=== PATIENT | female | born 1950 | race Caucasian/White ===

== ENCOUNTER 2016-06-04 22:27 | Emergency (ER) | payer MEDICARE, MEDICAID ==
[2016-06-05] MEDS ORDERED: LIDOCAINE 1%/EPINEPHRINE INJ 20 ML VIAL INJ ONE (03:59)
--- NOTE | 2016-06-05 05:46 | ER Document Report ---
ED General - General Chief Complaint: Fall Injury Stated Complaint: FALL,HEAD LACERATION Notes: Patient is a 58-year-old female presents for complaint of a fall. Patient says she has MS and sometimes her leg will give out on her. She says her leg spasms and gave out on her and she fell hit her head. She denies any other injuries. She says her pain is mostly in her head. She denies any neck pain. No back pain. Denies any hip pain. No abdominal or chest pain. No other complaints at this time. She's not on blood thinners. No loss of consciousness. No vomiting since the fall. TRAVEL OUTSIDE OF THE [place] IN LAST 30 DAYS: No - Related Data Allergies/Adverse Reactions: Penicillins Allergy (Verified 10/10/15 09:01) Past Medical History - Social History Smoking Status: Never Smoker Chew tobacco use (# tins/day): No Frequency of alcohol use: None Drug Abuse: None Family History: Reviewed & Not Pertinent Patient has suicidal ideation: No Patient has homicidal ideation: No - Past Medical History Cardiac Medical History: Reports: Hx Hypertension Denies: Hx Coronary Artery Disease, Hx Heart Attack Pulmonary Medical History: Reports: Hx Pneumonia Denies: Hx Asthma, Hx Bronchitis, Hx COPD Neurological Medical History: Denies: Hx Cerebrovascular Accident, Hx Seizures Renal/ Medical History: Denies: Hx Peritoneal Dialysis GI Medical History: Reports: Hx Gastroesophageal Reflux Disease Musculoskeltal Medical History: Reports Hx Arthritis, Reports Hx Multiple Sclerosis Psychiatric Medical History: Reports: Hx Depression Past Surgical History: Reports: Hx Hysterectomy, Hx Thyroid Surgery, Hx Tonsillectomy - Immunizations Immunizations up to date: No Hx Diphtheria, Pertussis, Tetanus Vaccination: Yes Hx Pneumococcal Vaccination: 08/30/14 Review of Systems - Review of Systems Notes: My Normal Review Basic REVIEW OF SYSTEMS: CONSTITUTIONAL : Denies fever, chills, or sweats. Denies recent illness. EENT: Scalp laceration RESPIRATORY: Denies cough, cold, or chest congestion. Denies shortness of breath, difficulty breathing, or wheezing. GASTROINTESTINAL: Denies abdominal pain. Denies nausea, vomiting, or diarrhea. Denies constipation. Last BM: GENITOURINARY: Denies difficulty urinating, painful urination, burning, frequency, or blood in urine. MUSCULOSKELETAL: Denies neck or back pain or joint pain or swelling. SKIN: Denies rash or skin lesions NEUROLOGICAL: Denies altered mental status or loss of consciousness. Denies headache. Denies weakness or paralysis or loss of use of either side. Denies problems with gait or speech. Denies sensory or motor loss. ALL OTHER SYSTEMS REVIEWED AND NEGATIVE. Physical Exam - Vital signs Vitals: Temp Pulse Resp BP Pulse Ox 97.9 F 75 16 92/52 L 95 06/04/16 22:51 06/04/16 22:51 06/04/16 22:51 06/04/16 22:51 06/04/16 22:51 - Notes Notes: General Appearance: Well nourished, alert, cooperative, no acute distress, no obvious discomfort. Well-appearing. Vitals: reviewed, See vital signs table. Head: Small laceration over posterior's scalp is approximately 1-1/2 cm. No foreign body seen. Eyes: PERRL, EOMI, Conjuctiva clear Mouth: No decreasd moisture Throat: No tonsillar inflammation, No airway obstruction, No lymphadenopathy Neck: Supple, no neck tenderness, No thyromegaly. No step-offs or deformities to palpation of the neck. Back: No tenderness to palpation of thoracic or lumbar spine. No step-offs or deformities. Lungs: No wheezing, No rales, No rhonci, No accessory muscle use, good air exchange bilaterally. Heart: Normal rate, Regular rythm, No murmur, no rub Abdomen: Normal BS, soft, No rigidity, No abdominal tenderness, No guarding, no rebound, no abdominal masses, no organomegaly Extremities: strength 5/5 in all extremities, good pulses in all extremities, no swelling or tenderness in the extremities, no pain with range of motion of all 4 extremities. No edema. Pelvis is stable without pain to palpation. Skin: warm, dry, appropriate color, no rash Neuro: speech clear, oriented x 3, normal affect, responds appropriately to questions. Course - Vital Signs Vital signs: Temp Pulse Resp BP Pulse Ox 97.7 F 75 18 105/52 L 96 06/05/16 05:52 06/05/16 05:52 06/05/16 05:52 06/05/16 05:52 06/05/16 05:52 - Transfer of Care Notes: 06/05/16 05:53 Patient will be discharged home. Sounds at her follow is prolonged mechanical. She says the fall is related to her MS. I did apply aditya in the scalp laceration. I cannot find any other concerning injuries on physical exam. CT scan the head was negative. Patient encouraged return to ER if she has severe headache, vomiting, or feels unwell or has any further concerns. Patient agrees with plan and will be discharged home. Patient's initial blood pressure was a little low. Patient says her blood pressure usually runs low. She says her systolic pressure is usually just above 100. Dictation of this chart was performed using voice recognition software; therefore, there may be some unintended grammatical errors. 06/05/16 05:54 06/05/16 07:00 Discharge - Discharge Clinical Impression: Scalp laceration Qualifiers: Encounter type: initial encounter Qualified Code(s): S01.01XA - Laceration without foreign body of scalp, initial encounter Condition: Good Disposition: HOME, SELF-CARE Additional Instructions: Please have your aditya removed in 7 days. Please return to ER immediately if you have severe headache, vomiting, or feel unwell. Please be careful when you walk and ask for assistance if needed when you walk due to the weakness you have from your MS. Return to the ER if you have any further concerns. Referrals: SARBJIT CAGLE MD [Primary Care Provider] - Follow up in 1 week
[2016-06-05 12:02] VITALS: BP 120/59
== END 2016-06-05 12:07 | disposition home or self-care (01) ==
LOC: ER 22:27
PROC: 0HQ0XZZ Repair Scalp Skin, External Approach (ICD-10-PCS; principal; 2016-06-04)
DX: S01.01XA Laceration without foreign body of scalp, initial encounter (principal); G35 Multiple sclerosis; X58.XXXA Exposure to other specified factors, initial encounter
CPT/HCPCS: 99284; 70450; 12001; J3490

== ENCOUNTER 2016-10-21 01:32 | Emergency (ER) | payer MEDICARE ==
[2016-10-21] MEDS ORDERED: MORPHINE SULFATE 10 MG/ML INJ IV ONE (01:46)
[2016-10-21] MEDS ORDERED: NORMAL SALINE 1000 ML 1,000 ML IV ONE ×2 (01:46→06:53)
--- NOTE | 2016-10-21 01:48 | ER Document Report ---
ED General - General Stated Complaint: CHEST TIGHTNESS Time Seen by Provider: 10/21/16 01:41 Notes: Patient is a 66-year-old female that comes emergency department for chief complaint of body pain and chest tightness. Patient states that she might be having a flare from multiple sclerosis, however she had more chest tightness than usual and she became concerned and called EMS. EMS gave her 2 sublingual nitroglycerin, aspirin, Zofran. Patient states she felt nauseated and she " spit up a little" twice. Patient denies fever or chills, she reports the pain makes her feel short of breath. She denies history of [place], states she had a negative stress test last year, denies family history of cardiac disease, denies personal or family history of blood clot. Patient also states she is out of Klonopin, for 3 days now, states that she was taken off by her primary care provider about a month ago, patient also had a new fentanyl patch which symptoms started shortly after, this was also removed by EMS. TRAVEL OUTSIDE OF THE [place] IN LAST 30 DAYS: No - Related Data Allergies/Adverse Reactions: Penicillins Allergy (Verified 10/10/15 09:01) Past Medical History - General Information source: Patient - Social History Smoking Status: Former Smoker Drug Abuse: None Lives with: Friend Family History: Reviewed & Not Pertinent - Past Medical History Cardiac Medical History: Reports: Hx Hypertension Denies: Hx Coronary Artery Disease, Hx Heart Attack Pulmonary Medical History: Reports: Hx Pneumonia Denies: Hx Asthma, Hx Bronchitis, Hx COPD Neurological Medical History: Denies: Hx Cerebrovascular Accident, Hx Seizures Renal/ Medical History: Denies: Hx Peritoneal Dialysis GI Medical History: Reports: Hx Gastroesophageal Reflux Disease Musculoskeltal Medical History: Reports Hx Arthritis, Reports Hx Multiple Sclerosis Psychiatric Medical History: Reports: Hx Depression Past Surgical History: Reports: Hx Hysterectomy, Hx Thyroid Surgery, Hx Tonsillectomy - Immunizations Immunizations up to date: No Hx Diphtheria, Pertussis, Tetanus Vaccination: Yes Hx Pneumococcal Vaccination: 08/30/14 Review of Systems - Review of Systems Constitutional: No symptoms reported EENT: No symptoms reported Cardiovascular: See HPI Respiratory: See HPI Gastrointestinal: No symptoms reported Genitourinary: No symptoms reported Female Genitourinary: No symptoms reported Musculoskeletal: See HPI Skin: No symptoms reported Hematologic/Lymphatic: No symptoms reported Neurological/Psychological: No symptoms reported Physical Exam - Vital signs Vitals: Resp Pulse Ox 21 H 97 10/21/16 01:38 10/21/16 01:38 Interpretation: Normal - General General appearance: Other - patient somewhat anxious, appears worked up, but not in distress - HEENT Head: Normocephalic, Atraumatic Eyes: Normal Pupils: PERRL - Respiratory Respiratory status: No respiratory distress. No: Tachypnea Chest status: Nontender Breath sounds: Normal. No: Decreased air movement, Stridor Chest palpation: Normal - Cardiovascular Rhythm: Regular, Tachycardia Heart sounds: Normal auscultation, S1 appreciated, S2 appreciated Murmur: No - Abdominal Inspection: Normal Distension: No distension Bowel sounds: Normal Tenderness: Nontender. No: Tender, Coy's sign, Guarding Organomegaly: No organomegaly - Back Back: Normal, Nontender. No: Tender - Extremities General upper extremity: Normal inspection, Nontender, Normal ROM, Normal strength General lower extremity: Normal inspection, Nontender, Normal ROM, Normal strength. No: Edema - Neurological Neuro grossly intact: Yes Cognition: Normal Orientation: AAOx4 Kavitha Coma Scale Eye Opening: Spontaneous Kavitha Coma Scale Verbal: Oriented Kavitha Coma Scale Motor: Obeys Commands Kavitha Coma Scale Total: 15 Speech: Normal Motor strength normal: LUE, RUE, LLE, RLE Sensory: Normal - Psychological Associated symptoms: Anxious - anxious but cooperative - Skin Skin Temperature: Warm Skin Moisture: Dry Skin Color: Normal Course - Re-evaluation Re-evalutation: Patient tachycardic, she becomes easily anxious and tearful, she does not appear to be in distress. After treatment with pain medication, pain states her chest pain has resolved, she just complains of intermittent leg cramps. EKG shows tachycardia with no significant change from prior, CBC normal, chemistry generally unremarkable, patient given some IV fluids. 2 sets of negative cardiac enzymes performed. On reevaluation at bedside patient continues to have tachycardia, because of this after discussion CTA was performed to rule out pulmonary embolism. Incidental finding of questionable common bile duct at 1.8, however LFTs are unremarkable, alk phos is unremarkable, bilirubin is unremarkable, and patient has no abdominal plain complaints, completely nontender abdomen on examination. Discussed with Dr. Avila. I did notice that patient has normalization of heart rate into the 90s when I am not in the room, when I enter the room she starts to talk loudly and heart rate elevates. Suspect anxiety component. Urinalysis still pending. Patient is now with a heart rate in the 80s, she is calm, she is more conversational and interactive. She states she wants to go home. No fever, no leukocytosis, no evidence of ACS. Patient given a dose of Bactrim for urine, it is contaminated but patient reports to me that she has ongoing urinary tract infections. Culture pending. Discussed again with patient, she states she is ready to leave, she agrees to return for any concerning or worsening symptoms including fever, abdominal pain, chest pain, or any other concerning symptoms. Denies current symptoms. - Vital Signs Vital signs: Temp Pulse Resp BP Pulse Ox 21 H 147/79 H 97 10/21/16 07:25 10/21/16 07:25 10/21/16 07:25 - Laboratory Result Diagrams: 10/21/16 02:15 10/21/16 02:15 Laboratory results interpreted by me: 10/21/16 10/21/16 10/21/16 02:15 02:15 07:28 RBC 5.32 H Seg Neutrophils % 78.8 H Chloride 97 L Carbon Dioxide 31 H BUN 26 H Glucose 116 H AST 38 H Total Protein 8.7 H Urine Blood LARGE H Ur Leukocyte Esterase LARGE H Discharge - Discharge Clinical Impression: Chest pain, Whole body pain, Anxiety, Urinary tract infection Condition: Stable Disposition: HOME, SELF-CARE Additional Instructions: Take the Bactrim antibiotic for urinary tract infection as prescribed. Please follow-up with Dr. Mohamud for additional management of pain and for close follow-up. Return to emergency department for any returned or new concerning symptoms including chest pain, difficulty breathing, fever, vomiting, etc. Prescriptions: Sulfamethoxazole/Trimethoprim [Bactrim Ds Tablet] 1 each PO BID #14 tablet Referrals: SANTO MOHAMUD NP [Primary Care Provider] - Follow up as needed
--- NOTE | 2016-10-21 02:20 | RADIOLOGY REPORT (SQ) ---
EXAM DESCRIPTION: CHEST SINGLE VIEW COMPLETED DATE/TIME: 10/21/2016 2:08 am REASON FOR STUDY: chest pain COMPARISON: 7.24.16 EXAM PARAMETERS: NUMBER OF VIEWS: One view. TECHNIQUE: Single frontal radiographic view of the chest acquired. RADIATION DOSE: NA LIMITATIONS: None. FINDINGS: LUNGS AND PLEURA: No opacities, masses or pneumothorax. No pleural effusion. MEDIASTINUM AND HILAR STRUCTURES: No masses. Contour normal. HEART AND VASCULAR STRUCTURES: Heart normal in size. Atherosclerosis. BONES: No acute findings. HARDWARE: None in the chest. OTHER: No other significant finding. IMPRESSION: NO ACUTE RADIOGRAPHIC FINDING IN THE CHEST. TECHNICAL DOCUMENTATION: JOB ID: [id number]
[2016-10-21 02:36] LABS: ABSOLUTE LYMPHOCYTES (AUTO) 1.6 10^3/uL (0.5-4.7); ABSOLUTE MONOCYTES (AUTO) 0.5 10^3/uL (0.1-1.4); ABSOLUTE NEUT (AUTO) 8.1 10^3/uL (1.7-8.2); BASOPHILS % (AUTO) 0.4 % (0-2); EOSINOPHILS % (AUTO) 0.1 % (0-6); HEMATOCRIT 44.3 % (36.0-47.0); HEMOGLOBIN 14.4 g/dL (12.0-15.5); HGB HCT DIFFERENCE -1.1; LYMPHOCYTES % (AUTO) 15.8 % (13-45); MEAN CORPUSCULAR HEMOGLOBIN 27.1 pg (27.0-33.4); MEAN CORPUSCULAR HGB CONC 32.5 g/dL (32.0-36.0); MEAN CORPUSCULAR VOLUME 83 fl (80-97); MONOCYTES % (AUTO) 4.9 % (3-13); RED BLOOD COUNT 5.32 10^6/uL (3.72-5.28); RED CELL DISTRIBUTION WIDTH 13.9 % (11.5-14.0); SEGMENTED NEUTROPHILS % (AUTO) 78.8 % (42-78); WHITE BLOOD COUNT 10.3 10^3/uL (4.0-10.5)
[2016-10-21 02:49] LABS: ALANINE AMINOTRANSFERASE 23 U/L (9-52); ALBUMIN 4.9 g/dL (3.5-5.0); ALKALINE PHOSPHATASE 77 U/L (38-126); ANION GAP 15 (5-19); ASPARTATE AMINO TRANSFERASE 38 U/L (14-36); BILIRUBIN,DIRECT 0.4 mg/dL (0.0-0.4); BILIRUBIN,TOTAL 0.6 mg/dL (0.2-1.3); BLOOD UREA NITROGEN 26 mg/dL (7-20); CALCIUM 10.1 mg/dL (8.4-10.2); CARBON DIOXIDE 31 mmol/L (22-30); CHLORIDE 97 mmol/L (98-107); CREATINE KINASE 45 U/L (30-135); CREATININE RESULT 0.83 mg/dL (0.52-1.25); GLUCOSE 116 mg/dL (75-110); POTASSIUM 4.7 mmol/L (3.6-5.0); SODIUM 142.5 mmol/L (137-145); TOTAL PROTEIN 8.7 g/dL (6.3-8.2)
[2016-10-21 03:01] LABS: CREATINE KINASE MB 1.91 ng/mL (<4.55)
[2016-10-21 03:03] LABS: TROPONIN I < 0.012 ng/mL
[2016-10-21] MEDS ORDERED: HYDROMORPHONE HCL INJ/PF 2 MG/ML AMPULE IV ONE (03:58)
[2016-10-21] MEDS ORDERED: HYDROMORPHONE HCL INJ/PF 2 MG/ML AMPULE IM ONE (04:45)
--- NOTE | 2016-10-21 05:15 | RADIOLOGY REPORT (SQ) ---
EXAM DESCRIPTION: CTA CHEST COMPLETED DATE/TIME: 10/21/2016 4:31 am REASON FOR STUDY: chest pain, tachycardia COMPARISON: CR, 06/09/2015, 08/27/2015, 11/23/2015, 10/21/2016. TECHNIQUE: CT scan of the chest performed using helical scanning technique with dynamic intravenous contrast injection. Images reviewed with lung, soft tissue and bone windows. Reconstructed coronal and sagittal MPR images reviewed. Additional 3 dimensional post-processing performed to develop Maximal Intensity Projection images (AZ P). All images stored on PACS. All CT scanners at this facility use dose modulation, iterative reconstruction, and/or weight based d osing when appropriate to reduce radiation dose to as low as reasonably achievable (ALARA). [facility]: Dose Right [facility]: CareDose [facility]: Dose Right [facility]: Teradose 4D [facility]: Connecture CONTRAST TYPE AND DOSE: contrast/concentration: Isovue 370.00 mg/ml; Total Contrast Delivered: 128.7 ml; Total Saline Delivered: 60.0 ml RENAL FUNCTION: Cr 0.8 RADIATION DOSE: Up-to-date CT equipment and radiation dose reduction techniques were employed. CTDIv ol: 15.2 mGy. DLP: 505 mGy-cm. . LIMITATIONS: None. FINDINGS: LUNGS AND PLEURA: No masses, infiltrates, pneumothorax. No pleural effusions, calcificati ons. Calcified granuloma of the left lower lobe. Small reticulonodular interstitial markings of the right middle lobe. AORTA AND GREAT VESSELS: No aneurysm or dissection. HEART: No pericardial effusion. PULMONARY ARTERIES: No emboli visualized in the main pulmonary arteries or the segmental branches. HILAR AND MEDIASTINAL STRUCTURES: Old granulomatous disease. HARDWARE: None in the chest. UPPER ABDOMEN: Likely hepatic hemangiomata partially imaged measuring 5.5 and 3.0 cm. Moderate hepat ic steatosis. Common duct dilation measuring 1.8 cm ; mild intrahepatic ductal dilation. . 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 THYROID AND OTHER SOFT TISSUES: No masses. No adenopathy. BONES: No acute or significant finding. Mild -moderate diffuse exaggerated kyphosis. 3D MIPS: Confirm above findings. OTHER: No other significant finding. IMPRESSION: 1. Common bile duct dilation measures 1.8 cm. Mild intra hepatic ductal dilation. Con asphalt smoother laboratory/ sonographic correlation. 2. Mild reticular nodularity of the right middle lobe ma y indicate atypical pneumonitis. No evidence of pulmonary emboli. TECHNICAL DOCUMENTATION: JOB ID: [id number] Quality ID # [id number]: Final reports with documentation of one or more dose reduction techniques (e.g., Au tomated exposure control, adjustment of the mA and/or kV according to patient size, use of iterative reconstruction technique) 2010 [employer]- All Rights Reserved
[2016-10-21 07:59] LABS: APPEARANCE,URINE CLOUDY; BILIRUBIN,URINE NEGATIVE (NEGATIVE); GLUCOSE, URINE NEGATIVE (NEGATIVE); KETONES,URINE NEGATIVE (NEGATIVE); LEUKOCYTE ESTERASE,URINE LARGE (NEGATIVE); NITRITE,URINE NEGATIVE (NEGATIVE); PROTEIN,URINE NEGATIVE (NEGATIVE); URINE SPECIFIC GRAVITY 1.013; UROBILINOGEN,URINE NEGATIVE mg/dL (<2.0)
[2016-10-21] MEDS ORDERED: SULFAMETHOXAZOLE/TRIMETHOPRIM 800-160 MG TABLET PO ONE (08:04)
--- NOTE | 2016-10-21 10:45 | EKG REPORT ---
SEVERITY:- DEFECTIVE ECG - SINUS TACHYCARDIA BIATRIAL ABNORMALITIES REPEAT EKG : Confirmed by: Vida Gomez MD 21-Oct-2016 10:45:04
[2016-10-21 12:06] VITALS: BP 157/78
== END 2016-10-21 12:08 | disposition home or self-care (01) ==
LOC: ER 01:32
DX: R07.89 Other chest pain (principal); G35 Multiple sclerosis; N39.0 Urinary tract infection, site not specified; F41.9 Anxiety disorder, unspecified; R11.0 Nausea; R25.2 Cramp and spasm; R00.0 Tachycardia, unspecified; I10 Essential (primary) hypertension; Z88.0 Allergy status to penicillin; Z87.891 Personal history of nicotine dependence
CPT/HCPCS: 93005; 99285; 96372; 96361; 51701; 96374; 36415; 87086; 82553; 82550; 85025; 87088; 80053; 81001; 84484; 87186; 71010; 71275; 93010; J2270; J1170; A9270; J7030

== ENCOUNTER 2016-10-27 00:43 | Emergency (ER) | payer MEDICARE ==
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
[2016-10-27 01:48] LABS: ABSOLUTE BASOPHILS # (AUTO) 0.1 10^3/uL (0.0-0.2); ABSOLUTE LYMPHOCYTES (AUTO) 2.1 10^3/uL (0.5-4.7); ABSOLUTE MONOCYTES (AUTO) 0.8 10^3/uL (0.1-1.4); ABSOLUTE NEUT (AUTO) 8.5 10^3/uL (1.7-8.2); BASOPHILS % (AUTO) 0.8 % (0-2); EOSINOPHILS % (AUTO) 0.3 % (0-6); HEMATOCRIT 48.8 % (36.0-47.0); HEMOGLOBIN 15.2 g/dL (12.0-15.5); HGB HCT DIFFERENCE -3.2; LYMPHOCYTES % (AUTO) 18.4 % (13-45); MEAN CORPUSCULAR HEMOGLOBIN 26.4 pg (27.0-33.4); MEAN CORPUSCULAR HGB CONC 31.1 g/dL (32.0-36.0); MEAN CORPUSCULAR VOLUME 85 fl (80-97); MONOCYTES % (AUTO) 6.7 % (3-13); RED BLOOD COUNT 5.75 10^6/uL (3.72-5.28); RED CELL DISTRIBUTION WIDTH 14.4 % (11.5-14.0); SEGMENTED NEUTROPHILS % (AUTO) 73.8 % (42-78); WHITE BLOOD COUNT 11.5 10^3/uL (4.0-10.5)
[2016-10-27 02:02] LABS: ALANINE AMINOTRANSFERASE 28 U/L (9-52); ALBUMIN 4.7 g/dL (3.5-5.0); ALKALINE PHOSPHATASE 72 U/L (38-126); ANION GAP 16 (5-19); ASPARTATE AMINO TRANSFERASE 49 U/L (14-36); BILIRUBIN,DIRECT 0.3 mg/dL (0.0-0.4); BILIRUBIN,TOTAL 0.5 mg/dL (0.2-1.3); BLOOD UREA NITROGEN 18 mg/dL (7-20); CARBON DIOXIDE 24 mmol/L (22-30); CHLORIDE 97 mmol/L (98-107); CREATININE RESULT 0.95 mg/dL (0.52-1.25); GLUCOSE 101 mg/dL (75-110); POTASSIUM 4.8 mmol/L (3.6-5.0); SODIUM 136.6 mmol/L (137-145); TOTAL PROTEIN 7.9 g/dL (6.3-8.2)
[2016-10-27 02:19] LABS: AMORPHOUS SEDIMENT,URINE TRACE /HPF; APPEARANCE,URINE CLOUDY; BILIRUBIN,URINE NEGATIVE (NEGATIVE); GLUCOSE, URINE NEGATIVE (NEGATIVE); KETONES,URINE 20 mg/dL (NEGATIVE); LEUKOCYTE ESTERASE,URINE SMALL (NEGATIVE); NITRITE,URINE NEGATIVE (NEGATIVE); PROTEIN,URINE 100 mg/dL (NEGATIVE); URINE SPECIFIC GRAVITY 1.021; UROBILINOGEN,URINE NEGATIVE mg/dL (<2.0)
[2016-10-27] MEDS ORDERED: CIPROFLOXACIN HCL 500 MG TABLET PO ONE (02:43)
[2016-10-27 03:12] VITALS: BP 138/73
== END 2016-10-27 03:12 | disposition home or self-care (01) ==
LOC: ER 00:43
DX: N39.0 Urinary tract infection, site not specified (principal); R41.82 Altered mental status, unspecified; R50.9 Fever, unspecified
CPT/HCPCS: 99285; 51701; 36415; 87086; 85025; 87088; 80053; 81001; A9270

== ENCOUNTER 2016-10-27 15:21 | Inpatient (IN) | payer MEDICARE ==
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
[2016-10-27 17:58] LABS: APPEARANCE,URINE SLIGHTLY-CLOUDY; BILIRUBIN,URINE NEGATIVE (NEGATIVE); GLUCOSE, URINE NEGATIVE (NEGATIVE); KETONES,URINE 20 mg/dL (NEGATIVE); LEUKOCYTE ESTERASE,URINE TRACE (NEGATIVE); NITRITE,URINE NEGATIVE (NEGATIVE); PROTEIN,URINE 100 mg/dL (NEGATIVE); URINE SPECIFIC GRAVITY 1.019; UROBILINOGEN,URINE NEGATIVE mg/dL (<2.0)
[2016-10-27 18:40] LABS: ABSOLUTE BASOPHILS # (AUTO) 0.1 10^3/uL (0.0-0.2); ABSOLUTE LYMPHOCYTES (AUTO) 1.8 10^3/uL (0.5-4.7); ABSOLUTE MONOCYTES (AUTO) 1.2 10^3/uL (0.1-1.4); ABSOLUTE NEUT (AUTO) 14.3 10^3/uL (1.7-8.2); BASOPHILS % (AUTO) 0.4 % (0-2); HEMATOCRIT 47.1 % (36.0-47.0); HEMOGLOBIN 14.9 g/dL (12.0-15.5); HGB HCT DIFFERENCE -2.4; LYMPHOCYTES % (AUTO) 10.4 % (13-45); MEAN CORPUSCULAR HEMOGLOBIN 26.5 pg (27.0-33.4); MEAN CORPUSCULAR HGB CONC 31.7 g/dL (32.0-36.0); MEAN CORPUSCULAR VOLUME 84 fl (80-97); MONOCYTES % (AUTO) 6.7 % (3-13); RED BLOOD COUNT 5.62 10^6/uL (3.72-5.28); RED CELL DISTRIBUTION WIDTH 14.6 % (11.5-14.0); SEGMENTED NEUTROPHILS % (AUTO) 82.5 % (42-78); WHITE BLOOD COUNT 17.4 10^3/uL (4.0-10.5)
[2016-10-27 18:47] LABS: ALANINE AMINOTRANSFERASE 37 U/L (9-52); ALKALINE PHOSPHATASE 79 U/L (38-126); ANION GAP 18 (5-19); ASPARTATE AMINO TRANSFERASE 51 U/L (14-36); BILIRUBIN,DIRECT 0.4 mg/dL (0.0-0.4); BILIRUBIN,TOTAL 0.6 mg/dL (0.2-1.3); BLOOD UREA NITROGEN 32 mg/dL (7-20); CALCIUM 10.3 mg/dL (8.4-10.2); CARBON DIOXIDE 23 mmol/L (22-30); CHLORIDE 97 mmol/L (98-107); CREATININE RESULT 1.21 mg/dL (0.52-1.25); GLUCOSE 105 mg/dL (75-110); SODIUM 137.9 mmol/L (137-145); TOTAL PROTEIN 8.6 g/dL (6.3-8.2)
[2016-10-27] MEDS ORDERED: CEFTRIAXONE 1 GM/D5W RTU 50 ML IV ONE (18:49)
[2016-10-27] MEDS ORDERED: NORMAL SALINE 1000 ML 1,000 ML IV ONE (18:49)
[2016-10-28] MEDS ORDERED: NORMAL SALINE 1000 ML 1,000 ML IV PRN (00:31)
[2016-10-28] MEDS ORDERED: DORIPENEM 500 MG in NORMAL SALINE 100 ML IV ONE (00:45)
[2016-10-28] MEDS ORDERED: DORIPENEM INJ 500 MG VIAL IV PRN (02:00)
[2016-10-28] MEDS ORDERED: AMLODIPINE BESYLATE 5 MG TABLET PO SCH (02:26)
[2016-10-28] MEDS ORDERED: METOPROLOL TARTRATE 25 MG TABLET PO SCH (02:27)
[2016-10-28] MEDS ORDERED: DORIPENEM INJ 500 MG VIAL IV ONE (02:29)
[2016-10-28] MEDS: DORIPENEM 500 MG in NORMAL SALINE 100 ML IV SCH ×2 (02:48→10:38)
[2016-10-28] MEDS ORDERED: METOPROLOL TARTRATE 25 MG TABLET PO ONE (04:30)
[2016-10-28] MEDS ORDERED: AMLODIPINE BESYLATE 5 MG TABLET PO ONE (04:30)
[2016-10-28] MEDS ORDERED: ENOXAPARIN SODIUM INJ 40 MG/0.4 ML DISP.SYRIN SUBCUT SCH (10:00)
[2016-10-28] MEDS ORDERED: LANSOPRAZOLE 30 MG TAB.RAP.DR PO SCH (10:00)
[2016-10-28] MEDS: METOPROLOL TARTRATE 25 MG TABLET PO SCH ×2 (10:39→17:48)
[2016-10-28] MEDS: AMLODIPINE BESYLATE 5 MG TABLET PO SCH (10:40)
[2016-10-28] MEDS ORDERED: ONDANSETRON HCL INJ/PF 4 MG/2 ML SDV IV PRN ×2 (11:09→12:21)
--- NOTE | 2016-10-28 11:29 | PDOC H&P ---
History of Present Illness Admission Date/PCP: 10/27/16 18:14 Dr. Gordon History of Present Illness: SHONNA CANALES is a 66 year old female that presents to the emergency department for recurrent urinary tract infection and altered mental status. Patient is an established patient of Dr. Gordon but he has transferred service to the hospitalist service. Apparently at some point in patient's overtly delirious state she somehow stated she wanted to see "Dr. Giraldo". I have never seen this patient before. Dr. Gordon actively follows with patient as an outpatient but does not wish to see her any further. He has not formally discharge this patient from his practice prior to today's date. He has been actively prescribing patient medications up until this admission and actually admitted her to the hospital in 2016. I have tried to discuss with him that it makes more sense for him to see this patient as he is aware of her medical history and I am not that he did not wish to do this. History from patient is limited by altered mental status. Patient is continuously yelling random things from her room at the time of my visit. Past Medical History Cardiac Medical History: Reports: Hypertension Denies: Coronary Artery Disease, Myocardial Infarction Pulmonary Medical History: Reports: Pneumonia Denies: Asthma, Bronchitis, Chronic Obstructive Pulmonary Disease (COPD) Neurological Medical History: Reports: Multiple Sclerosis Denies: Seizures GI Medical History: Reports: Gastroesophageal Reflux Disease Musculoskeltal Medical History: Reports: Arthritis Psychiatric Medical History: Reports: Depression Hematology: Denies: Anemia Past Surgical History Past Surgical History: Reports: Hysterectomy, Tonsillectomy Social History Information Source: [facility] Records Smoking Status: Unknown if Ever Smoked Frequency of Alcohol Use: None Hx Recreational Drug Use: No Hx Prescription Drug Abuse: No Family History Family History: Reviewed & Not Pertinent Parental Family History Reviewed: Yes Children Family History Reviewed: Yes Sibling(s) Family History Reviewed.: Yes Medication/Allergy Home Medications: Amlodipine Besylate [Norvasc 5 mg Tablet] 5 mg PO QAM 10/27/16 Citalopram Hydrobromide [Celexa 20 mg Tablet] 20 mg PO DAILY 10/27/16 Fentanyl [Duragesic 50 Mcg/Hr Transdermal Patch] 1 patch TOP Q3DAYS 10/27/16 Gabapentin [Neurontin 300 mg Capsule] 900 mg PO QHS 10/27/16 Hydrocodone/Acetaminophen [[place] 10-325 Tablet] 1 tab PO Q8HP PRN 10/27/16 Levothyroxine Sodium [Synthroid 0.15 mg Tablet] 0.15 mg PO DAILY 10/27/16 Metoprolol Tartrate [Lopressor 25 mg Tablet] 12.5 mg PO Q12 10/27/16 Oxybutynin Chloride [Ditropan 5 mg Tablet] 5 mg PO QAM 10/27/16 Pravastatin Sodium 20 mg PO QHS 10/27/16 Tizanidine HCl [Zanaflex 4 mg Tablet] 4 mg PO Q8HP PRN 10/27/16 Allergies/Adverse Reactions: Penicillins Allergy (Verified 10/10/15 09:01) Review of Systems ROS unobtainable: Due to mental status Physical Exam Vital Signs: Temp Pulse Resp BP Pulse Ox 98.3 F 124 H 20 153/84 H 97 10/28/16 08:49 10/28/16 08:49 10/28/16 08:49 10/28/16 08:49 10/28/16 08:49 Intake & Output 10/27/16 10/28/16 10/29/16 06:59 06:59 06:59 Intake Total 100 Balance 100 PHYSICAL EXAM: GENERAL: Appears well, no acute distress HEENT: Normocephalic, no scleral icterus, conjunctiva clear, EOEM intact, PERRLA , moist mucous membranes NECK: trachea midline, no thyromegally RESPIRATORY: Clear to auscultation, no wheezes/rhonchi CARDIAC: Regular rate and rhythm, no murmur/nhi/rub ABDOMEN: Soft, no distension, no tenderness, no guarding, normal bowel sounds, negative Coy sign RECTAL: deferred : deferred EXTREMITIES: No edema, cyanosis, clubbing MUSCULOSKELETAL: No joint swelling or deformity VASCULAR: normal peripheral pulses NEUROLOGIC: Alert, disoriented, normal speech, cranial nerves grossly intact, 5/ 5 strength in all extremities, tactile sensation intact in all extremities SKIN: No rash, no wounds, no worrisome skin lesions PSYCHIATRIC: Usual affect Results Laboratory Results: 10/27/16 18:22 10/27/16 18:22 10/27/16 10/27/16 18:22 18:22 WBC 17.4 H RBC 5.62 H Hgb 14.9 Hct 47.1 H MCV 84 MCH 26.5 L MCHC 31.7 L RDW 14.6 H Plt Count 407 Seg Neutrophils % 82.5 H Lymphocytes % 10.4 L Monocytes % 6.7 Eosinophils % 0.0 Basophils % 0.4 Absolute Neutrophils 14.3 H Absolute Lymphocytes 1.8 Absolute Monocytes 1.2 Absolute Eosinophils 0.0 Absolute Basophils 0.1 Sodium 137.9 Potassium 5.0 Chloride 97 L Carbon Dioxide 23 Anion Gap 18 BUN 32 H Creatinine 1.21 Est GFR ( Amer) 54 L Est GFR (Non-Af Amer) 44 L Glucose 105 Calcium 10.3 H Total Bilirubin 0.6 AST 51 H ALT 37 Alkaline Phosphatase 79 Total Protein 8.6 H Albumin 5.0 Assessment & Plan - Diagnosis (1) Encephalopathy Is this a current diagnosis for this admission?: YesPlan: Likely secondary to urinary tract infection. That being said I would like to check head CT. Patient is on multiple neuroactive medications as well. I will try and minimize neuroactive medications as much as possible. Patient also has a history of multiple sclerosis and this must be considered. If head CT is negative and patient does not improve I will check MRI of the brain. (2) UTI (urinary tract infection) Qualifiers: Urinary tract infection type: site unspecified Hematuria presence: with hematuria Qualified Code(s): N39.0 - Urinary tract infection, site not specified Is this a current diagnosis for this admission?: YesPlan: Patient has recurrent and complicated urinary tract infections. She has failed outpatient Bactrim and Cipro. Urine culture on 10/21/2016 is growing ESBL E. coli sensitive to ertapenem's. I will start patient on IV ertapenem. Check renal ultrasound given recurrent complicated UTIs. (3) Abnormal CT scan, liver Is this a current diagnosis for this admission?: YesPlan: CTA of chest performed on 10/21/2016 showed dilation of common bile duct for which ultrasound correlation was recommended. Check right upper quadrant ultrasound. (4) Leukocytosis Qualifiers: Leukocytosis type: other Qualified Code(s): D72.828 - Other elevated white blood cell count Is this a current diagnosis for this admission?: YesPlan: Likely secondary to ESBL E. coli urinary tract infection. That being said I will follow-up on abnormal CT scan as mentioned above. I will also repeat chest x-ray. (5) Multiple sclerosis Is this a current diagnosis for this admission?: YesPlan: Consider MRI of brain if mental status not improving. (6) Opiate dependence, continuous Is this a current diagnosis for this admission?: YesPlan: Continue Duragesic patch. Hold off on hydrocodone for now secondary to altered mental status. (7) Hypothyroid Qualifiers: Hypothyroidism type: unspecified Qualified Code(s): E03.9 - Hypothyroidism, unspecified Is this a current diagnosis for this admission?: YesPlan: Continue current dose of Synthroid 150 mcg daily. Check TSH. - Time Time Spent: Greater than 70 Minutes
[2016-10-28 12:53] LABS: URINE BARBITURATES SCREEN NEGATIVE; URINE METHADONE SCREEN NEGATIVE; URINE PHENCYCLIDINE SCREEN NEGATIVE
[2016-10-28 12:56] LABS: URINE OPIATES LOW UNCONFIRMED POSITIVE
--- NOTE | 2016-10-28 13:09 | RADIOLOGY REPORT (SQ) ---
EXAM DESCRIPTION: U/S ABDOMEN COMPLETE W/DOPPLER COMPLETED DATE/TIME: 10/28/2016 12:57 pm REASON FOR STUDY: abn CT scan, CBD dilation COMPARISON: CT angio chest 10/21/2016 TECHNIQUE: Dynamic and static grayscale images acquired of the abdomen and recorded on PACS. Loo iliana selected color Doppler and spectral images recorded. LIMITATIONS: Upper abdominal bowel gas FINDINGS: PANCREAS: Not well seen LIVER: Normal size. Hemangioma left lobe liver difficult to visualize due to subdiaphragmatic locati on. Posterior right lobe hemangioma 3 cm in size. LIVER VASCULATURE: Normal directional flow of the main portal vein and hepatic veins. GALLBLADDER: No stones. Normal wall thickness. No pericholecystic fluid. ULTRASOUND-DETECTED LAGUNAS'S SIGN: Negative. INTRAHEPATIC DUCTS AND COMMON DUCT: Mild intrahepatic biliary ductal dilatation. Common bile duct at the anita hepatis 810 to 12 mm. Distal most common duct not well seen due to duodenum gas. INFERIOR VENA CAVA: Normal flow. AORTA: Midline bowel gas, not well seen RIGHT KIDNEY: Normal size. Normal echogenicity. No solid or suspicious masses. No hydronephros is. A 15 mm stone is present in the right renal pelvis, no hydronephrosis or dilatation of the righ t renal pelvis. LEFT KIDNEY: Normal size. Normal echogenicity. No solid or suspicious masses. No hydronephrosi s. No calcifications. SPLEEN: Not well seen PERITONEAL AND PLEURAL SPACES: No ascites or effusions. OTHER: Report called to Dr. Giraldo IMPRESSION: Midline left lobe liver, distal common duct, midline pancreas not well seen due to bowel gas. Consider MRCP for follow-up of common bile duct dilatation. This was discussed with Dr. Sonali robles TECHNICAL DOCUMENTATION: JOB ID: [id number]- All Rights Reserved
--- NOTE | 2016-10-28 13:14 | RADIOLOGY REPORT (SQ) ---
EXAM DESCRIPTION: CT HEAD WITHOUT COMPLETED DATE/TIME: 10/28/2016 1:02 pm REASON FOR STUDY: AMS COMPARISON: 06/05/2016 TECHNIQUE: Axial images acquired through the brain without intravenous contrast. Images reviewed wi th bone, brain and subdural windows. Images stored on PACS. All CT scanners at this facility use dose modulation, iterative reconstruction, and/or weight based d osing when appropriate to reduce radiation dose to as low as reasonably achievable (ALARA). [facility]: Dose Right [facility]: CareDose [facility]: Dose Right [facility]: Teradose 4D [facility]: Hi-G-Tek RADIATION DOSE: 48.95 mGy. LIMITATIONS: None. FINDINGS: VENTRICLES: Normal size and contour. CEREBRUM: No masses. No hemorrhage. No midline shift. Normal iverson/white matter differentiation. N o evidence for acute infarction. CEREBELLUM: No masses. No hemorrhage. No alteration of density. No evidence for acute infarction. EXTRAAXIAL SPACES: No fluid collections. No masses. ORBITS AND GLOBE: No intra- or extraconal masses. Normal contour of globe without masses. CALVARIUM: No fracture. PARANASAL SINUSES: No fluid or mucosal thickening. SOFT TISSUES: No mass or hematoma. OTHER: No other significant finding. IMPRESSION: No acute intracranial abnormality identified. TECHNICAL DOCUMENTATION: JOB ID: [id number] Quality ID # [id number]: Final reports with documentation of one or more dose reduction techniques (e.g., Au tomated exposure control, adjustment of the mA and/or kV according to patient size, use of iterative reconstruction technique) 2010 [employer]- All Rights Reserved
[2016-10-28 13:47] LABS: PROTHROMBIN TIME 14.2 SEC (11.4-15.4)
--- NOTE | 2016-10-28 14:04 | RADIOLOGY REPORT (SQ) ---
EXAM DESCRIPTION: CHEST SINGLE VIEW COMPLETED DATE/TIME: 10/28/2016 1:19 pm REASON FOR STUDY: elevated WBC COMPARISON: CT CHEST 10/21/2016 CHEST FILMS 10/21/2016, 11/23/2015, 03/15/2015 EXAM PARAMETERS: NUMBER OF VIEWS: One view. TECHNIQUE: Single frontal radiographic view of the chest acquired. RADIATION DOSE: NA LIMITATIONS: None. FINDINGS: LUNGS AND PLEURA: Benign calcified granuloma left base. Lungs are well inflated and clear . No pleural effusion. No pneumothorax. MEDIASTINUM AND HILAR STRUCTURES: No masses. Contour normal. HEART AND VASCULAR STRUCTURES: Heart normal in size. Normal vasculature. BONES: No acute findings. HARDWARE: None in the chest. OTHER: No other significant finding. IMPRESSION: NO ACUTE RADIOGRAPHIC FINDING IN THE CHEST. TECHNICAL DOCUMENTATION: JOB ID: [id number]
--- NOTE | 2016-10-28 14:13 | Progress Note ---
Provider Note Provider Note: ADDENDUM: Head CT: No acute process Chest x-ray: No acute process Right upper quadrant ultrasound: Difficulty visualizing biliary tree and pancreas. Recommend MRCP. Radiology unable to perform lumbar puncture today secondary to administration of Lovenox this morning. Study will be performed in the morning.
--- NOTE | 2016-10-28 16:05 | Progress Note ---
Provider Note Provider Note: TSH < 0.02. Repeat TSH, T3, T4. Decrease Synthroid to 75mcg daily.
[2016-10-28] MEDS: GABAPENTIN 300 MG CAPSULE PO SCH (21:15)
[2016-10-28] MEDS ORDERED: (PENDING PHARMACY ID) (Pravastatin Sodium [Pravastatin Sodium] 20 MG) PO SCH (22:00)
[2016-10-29] MEDS: ACETAMINOPHEN 325 MG TABLET PO PRN ×3 (04:16→14:21)
[2016-10-29] MEDS ORDERED: NORMAL SALINE 1000 ML 500 ML IV ONE ×2 (04:30→05:15)
[2016-10-29 04:43] LABS: ABSOLUTE BASOPHILS # (AUTO) 0.1 10^3/uL (0.0-0.2); ABSOLUTE LYMPHOCYTES (AUTO) 1.5 10^3/uL (0.5-4.7); ABSOLUTE MONOCYTES (AUTO) 0.6 10^3/uL (0.1-1.4); ABSOLUTE NEUT (AUTO) 11.8 10^3/uL (1.7-8.2); BASOPHILS % (AUTO) 0.5 % (0-2); HEMATOCRIT 39.5 % (36.0-47.0); HEMOGLOBIN 13.1 g/dL (12.0-15.5); HGB HCT DIFFERENCE -0.2; LYMPHOCYTES % (AUTO) 10.5 % (13-45); MEAN CORPUSCULAR HEMOGLOBIN 27.6 pg (27.0-33.4); MEAN CORPUSCULAR HGB CONC 33.2 g/dL (32.0-36.0); MEAN CORPUSCULAR VOLUME 83 fl (80-97); MONOCYTES % (AUTO) 4.3 % (3-13); RED BLOOD COUNT 4.74 10^6/uL (3.72-5.28); RED CELL DISTRIBUTION WIDTH 14.4 % (11.5-14.0); SEGMENTED NEUTROPHILS % (AUTO) 84.7 % (42-78); WHITE BLOOD COUNT 13.9 10^3/uL (4.0-10.5)
[2016-10-29 05:02] LABS: ANION GAP 13 (5-19); BLOOD UREA NITROGEN 19 mg/dL (7-20); CALCIUM 8.5 mg/dL (8.4-10.2); CARBON DIOXIDE 17 mmol/L (22-30); CHLORIDE 109 mmol/L (98-107); CREATININE RESULT 0.62 mg/dL (0.52-1.25); GLUCOSE 71 mg/dL (75-110); MAGNESIUM 1.9 mg/dL (1.6-2.3); POTASSIUM 4.3 mmol/L (3.6-5.0); SODIUM 138.8 mmol/L (137-145)
[2016-10-29 05:17] LABS: FREE T3 2.66 pg/mL (2.77-5.27)
[2016-10-29 05:32] LABS: THYROID STIMULATING HORMONE < 0.02 uIU/mL (0.47-4.68)
[2016-10-29] MEDS: LANSOPRAZOLE 30 MG TAB.RAP.DR PO SCH (05:51)
[2016-10-29] MEDS ORDERED: LEVOTHYROXINE SODIUM 0.15 MG TABLET PO SCH ×2 (06:00→10:00)
--- NOTE | 2016-10-29 08:38 | EKG REPORT ---
SEVERITY:- ABNORMAL ECG - SINUS TACHYCARDIA ATRIAL PREMATURE COMPLEX PROBABLE INFERIOR INFARCT, OLD : Confirmed by: Eugene Gomes 29-Oct-2016 08:36:56
[2016-10-29] MEDS: OXYBUTYNIN CHLORIDE 5 MG TABLET PO SCH (09:36)
[2016-10-29] MEDS: CITALOPRAM HYDROBROMIDE 20 MG TABLET PO SCH (09:36)
[2016-10-29] MEDS: AMLODIPINE BESYLATE 5 MG TABLET PO SCH (09:37)
[2016-10-29] MEDS: METOPROLOL TARTRATE 25 MG TABLET PO SCH ×2 (09:37→21:37)
[2016-10-29] MEDS ORDERED: ERTAPENEM SODIUM 1 GM in NORMAL SALINE 50 ML IV SCH (10:00)
[2016-10-29] MEDS ORDERED: LEVOTHYROXINE SODIUM 0.075 MG TABLET PO SCH (10:00)
[2016-10-29] MEDS ORDERED: ENOXAPARIN SODIUM INJ 40 MG/0.4 ML DISP.SYRIN SUBCUT SCH (10:00)
[2016-10-29] MEDS: ERTAPENEM SODIUM 0.5 GM in NORMAL SALINE 50 ML IV SCH (10:20)
--- NOTE | 2016-10-29 12:04 | RADIOLOGY REPORT (SQ) ---
EXAM DESCRIPTION: LUMBAR PUNCTURE; FLUORO/NEEDLE PLACEMENT/SPINE COMPLETED DATE/TIME: 10/29/2016 11:52 am REASON FOR STUDY: elevated WBC, AMS; ELEVATED WBC, AMS COMPARISON: 10/10/[address] brain 10/21/2016, 10/28/2016 FLUOROSCOPY TIME: 24 seconds 2 digital radiographic images saved to PACS. TECHNIQUE: Fluoroscopic guided lumbar puncture. LIMITATIONS: None. PROCEDURE: After written consent and assessment were obtained, the patient was brought into the fluo roscopy room and placed prone on the table. The patient's lower back was prepped in a sterile fashio n and an entry site was selected under live fluoroscopic guidance. The entry site was anesthetized wi th 4 mL of 1% lidocaine. A 22 gauge needle was advanced through the skin and into the thecal sac at t he left paracentral L2-3 level. After approximately 7 ml was drained, the needle was removed and a s terile bandage was placed of the site. Specimens were sent to the lab for testing. A fluoroscopic s pot image was saved to PACS confirming level access. FINDINGS: Clear CSF Opening pressure 8 cm water IMPRESSION: Lumbar puncture under fluoroscopy. No immediate complication. COMMENT: Patient medication list reviewed: Yes- Quality ID# [id number]:Eligible professional attests to doc umenting in the medical record they obtained, updated, or reviewed the patient's current medications. . Quality ID 145: Final reports for procedures using fluoroscopy that document radiation exposure hebert rut, or exposure time and number of fluorographic images (if radiation exposure indices are not avail able) TECHNICAL DOCUMENTATION: JOB ID: [id number] [employer]- All Rights Reserved
[2016-10-29 12:33] LABS: APPEARANCE TUBE 1 SLIGHTLY HAZY; APPEARANCE TUBE 2 CLEAR; APPEARANCE TUBE 3 CLEAR; RBC AVERAGE 102.5; RBC DILUENT USED NONE USED; RBC DILUTION FACTOR 1; RBC SIDE 1 97; RBC SIDE 2 108; TOTAL RBC SQUARES COUNTED 225
[2016-10-29 12:34] LABS: WHITE BLOOD CELL,CSF 1 /uL (0-5)
[2016-10-29 13:06] LABS: GLUCOSE,CSF 50 mg/dL (40-70)
[2016-10-29 13:10] LABS: CSF CULTURED REQUIRED CSF CULTURE ORDERED (CSFY); H. INFLUENZAE TYPE B AG NEGATIVE (NEGATIVE); S. PNEUMONIAE AG NEGATIVE (NEGATIVE); STREP. GROUP B AG NEGATIVE (NEGATIVE)
[2016-10-29] MEDS ORDERED: TUBERCULIN,PURIF.PROT.DERIV. 5 TU/0.1 ML TEST 1 ML VIAL ID ONE (14:57)
--- NOTE | 2016-10-29 15:23 | PDOC PROGRESS REPORT ---
Subjective Progress Note for:: 10/29/16 Subjective:: Patient's mental status is much improved. She is calm and appropriate today. Physical Exam Vital Signs: Temp Pulse Resp BP Pulse Ox 98.5 F 118 H 18 138/61 H 97 10/29/16 11:04 10/29/16 14:00 10/29/16 11:04 10/29/16 11:04 10/29/16 11:04 Intake & Output 10/28/16 10/29/16 10/30/16 06:59 06:59 06:59 Intake Total 100 2061 Balance 100 206 Weight 54.3 kg GENERAL: No acute distress HEENT: Conjunctiva clear, nonicteric, moist mucous membranes, no JVD, midline trachea RESPIRATORY: Clear to auscultation bilaterally, no wheezes, no rhonchi CARDIAC: Regular rate and rhythm, no murmurs/gallops/rubs ABDOMEN: Soft, nondistended, nontender, positive bowel sounds, no rebound, no guarding EXTREMETIES: No edema, cyanosis, clubbing NEUROLOGIC: Alert, oriented to person/place/time, CN's grossly intact, weakness in all extremities with contractures noted in lower extremities and left foot drop noted SKIN: No rash, wounds PSYCH: Normal mood, normal affect Results Laboratory Results: 10/29/16 04:33 10/29/16 04:33 10/29/16 10/29/16 10/29/16 04:33 04:33 04:33 WBC 13.9 H RBC 4.74 Hgb 13.1 Hct 39.5 MCV 83 MCH 27.6 MCHC 33.2 RDW 14.4 H Plt Count 344 Seg Neutrophils % 84.7 H Lymphocytes % 10.5 L Monocytes % 4.3 Eosinophils % 0.0 Basophils % 0.5 Absolute Neutrophils 11.8 H Absolute Lymphocytes 1.5 Absolute Monocytes 0.6 Absolute Eosinophils 0.0 Absolute Basophils 0.1 Sodium 138.8 Potassium 4.3 Chloride 109 H Carbon Dioxide 17 L Anion Gap 13 BUN 19 Creatinine 0.62 Est GFR ( Amer) > 60 Est GFR (Non-Af Amer) > 60 Glucose 71 L Calcium 8.5 Magnesium 1.9 TSH < 0.02 L Free T4 2.19 Free T3 pg/mL 2.66 L Fluid Tube Number CSF Volume CSF Color CSF WBC CSF RBC CSF Appearance (1) CSF Appearance (2) CSF Appearance (3) CSF Appearance (4) CSF Comment CSF Glucose CSF Total Protein 10/29/16 10/29/16 10/29/16 11:45 11:45 11:45 WBC RBC Hgb Hct MCV MCH MCHC RDW Plt Count Seg Neutrophils % Lymphocytes % Monocytes % Eosinophils % Basophils % Absolute Neutrophils Absolute Lymphocytes Absolute Monocytes Absolute Eosinophils Absolute Basophils Sodium Potassium Chloride Carbon Dioxide Anion Gap BUN Creatinine Est GFR ( Amer) Est GFR (Non-Af Amer) Glucose Calcium Magnesium TSH Free T4 Free T3 pg/mL Fluid Tube Number 3 CSF Volume 7.0 CSF Color COLORLESS CSF WBC 1 CSF RBC 113 CSF Appearance (1) SLIGHTLY HAZY CSF Appearance (2) CLEAR CSF Appearance (3) CLEAR CSF Appearance (4) CLEAR CSF Comment CSF CULTURE ORDERED CSF Glucose 50 CSF Total Protein 46 10/29/16 04:33 Troponin I < 0.012 10/29/16 11:45 Viral Culture - Pending Cerebral Spinal Fluid - Csf 10/29/16 11:45 Gram Stain - Preliminary Cerebral Spinal Fluid - Csf CSF Culture - Pending 10/28/16 04:29 Blood Culture - Preliminary Blood NO GROWTH IN 24 HOURS 10/27/16 19:25 Blood Culture - Preliminary Blood NO GROWTH IN 24 HOURS 10/27/16 01:27 Urine Culture - Preliminary Catheterized Urine Gram Positive Cocci 10/21/16 07:28 Urine Culture - Final Catheterized Urine Escherichia Coli Esbl Impressions: Head CT 10/28/16 00:00 IMPRESSION: No acute intracranial abnormality identified. Abdomen Ultrasound 10/28/16 11:16 IMPRESSION: Midline left lobe liver, distal common duct, midline pancreas not well seen due to bowel gas. Consider MRCP for follow-up of common bile duct dilatation. This was discussed with Dr. Giraldo Chest X-Ray 10/28/16 11:26 IMPRESSION: NO ACUTE RADIOGRAPHIC FINDING IN THE CHEST. Guidance Fluoroscopy 10/29/16 00:00 IMPRESSION: Lumbar puncture under fluoroscopy. No immediate complication. Lumbar Puncture 10/29/16 00:00 IMPRESSION: Lumbar puncture under fluoroscopy. No immediate complication. Assessment & Plan - Diagnosis (1) Encephalopathy Is this a current diagnosis for this admission?: YesPlan: Much improved today. Likely secondary to possibly opiate withdrawal. CSF unremarkable for infection. I would like to check MRI of the brain. (2) Systemic inflammatory response syndrome (SIRS) Is this a current diagnosis for this admission?: YesPlan: White blood count improving. Afebrile. (3) UTI (urinary tract infection) Qualifiers: Urinary tract infection type: site unspecified Hematuria presence: with hematuria Qualified Code(s): N39.0 - Urinary tract infection, site not specified Is this a current diagnosis for this admission?: YesPlan: Patient has recurrent and complicated urinary tract infections. She has failed outpatient Bactrim and Cipro. Urine culture on 10/21/2016 is growing ESBL E. coli sensitive to ertapenem's. Continue IV ertapenem for now. Patient should eventually be able to transition to oral doxycycline based on susceptibility testing. Renal ultrasound performed given recurrent complicated UTIs. This showed a 15 mm stone in the right renal pelvis with no hydronephrosis. Left kidney unremarkable. (4) Abnormal CT scan, liver Is this a current diagnosis for this admission?: YesPlan: Check MRCP for recommendation of radiologist. (5) Multiple sclerosis Is this a current diagnosis for this admission?: YesPlan: Check MRI of brain. Patient has not seen a neurologist in 3 years and [place]. (6) Opiate dependence, continuous Is this a current diagnosis for this admission?: YesPlan: Continue Duragesic patch. Resume as needed [place]. (7) Hypothyroid Qualifiers: Hypothyroidism type: unspecified Qualified Code(s): E03.9 - Hypothyroidism, unspecified Is this a current diagnosis for this admission?: YesPlan: Lab work consistent with central hypothyroidism. Continue current dose of levothyroxine 150 mcg daily. (8) Ambulatory dysfunction Is this a current diagnosis for this admission?: YesPlan: Physical therapy. Patient will probably need to go to inpatient rehab. She was ambulating with a rolling walker until about 3 months ago but has been somewhat wheelchair-bound for the past 3 months. - Time Time Spent with patient: 35 or more minutes
[2016-10-29] MEDS: HYDROCODONE/ACETAMINOPHEN 5-325 MG TABLET PO PRN ×2 (17:27→23:02)
[2016-10-29] MEDS: TIZANIDINE HCL 4 MG TABLET PO PRN (21:36)
[2016-10-29] MEDS: GABAPENTIN 300 MG CAPSULE PO SCH (21:36)
[2016-10-29] MEDS: ATORVASTATIN CALCIUM 10 MG TABLET PO SCH (21:37)
[2016-10-30 05:22] LABS: ANION GAP 11 (5-19); BLOOD UREA NITROGEN 14 mg/dL (7-20); CALCIUM 8.9 mg/dL (8.4-10.2); CARBON DIOXIDE 22 mmol/L (22-30); CHLORIDE 106 mmol/L (98-107); CREATININE RESULT 0.59 mg/dL (0.52-1.25); GLUCOSE 163 mg/dL (75-110); SODIUM 139.4 mmol/L (137-145)
[2016-10-30] MEDS: HYDROCODONE/ACETAMINOPHEN 5-325 MG TABLET PO PRN ×2 (05:55→12:18)
[2016-10-30] MEDS: LANSOPRAZOLE 30 MG TAB.RAP.DR PO SCH (05:56)
[2016-10-30 07:00] LABS: HEMATOCRIT 41.2 % (36.0-47.0); HGB HCT DIFFERENCE -2.2; MEAN CORPUSCULAR HEMOGLOBIN 26.5 pg (27.0-33.4); MEAN CORPUSCULAR HGB CONC 31.4 g/dL (32.0-36.0); MEAN CORPUSCULAR VOLUME 84 fl (80-97); RED BLOOD COUNT 4.89 10^6/uL (3.72-5.28); RED CELL DISTRIBUTION WIDTH 14.3 % (11.5-14.0); WHITE BLOOD COUNT 21.7 10^3/uL (4.0-10.5)
[2016-10-30 07:20] LABS: BASOPHILS % (MANUAL) 0 % (0-2); EOSINOPHILS % (MANUAL) 0 % (0-6); LYMPHOCYTES % (MANUAL) 7 % (13-45); RBC MORPHOLOGY COMMENT NORMO-CYTIC/CHROMIC; TOTAL CELLS COUNTED 100; TOXIC GRANULATION SLIGHT; TOXIC VACUOLATION PRESENT
--- NOTE | 2016-10-30 10:51 | RADIOLOGY REPORT (SQ) ---
EXAM DESCRIPTION: MRI HEAD COMBO COMPLETED DATE/TIME: 10/30/2016 10:04 am REASON FOR STUDY: AMS, h/o MS COMPARISON: 2014. CT brain from 10/28/2016. TECHNIQUE: Multiplanar imaging includes noncontrasted T1, T2, FLAIR, diffusion with ADC map and post gadolinium contrast T1 sequences. Images stored on PACS. CONTRAST TYPE AND DOSE: 10 ML Multihance. RENAL FUNCTION: GFR > 60. LIMITATIONS: None. FINDINGS: ANATOMY: No anomalies. Normal vascular flow voids. Pituitary fossa normal. CSF SPACES: Normal in size and contour. No hemorrhage. CEREBRUM: Patchy bilateral predominantly deep periventricular FLAIR hyperintense white matter signal. Relatively similar appearance compared to prior. No enhancing lesions. No hemorrhage or mass or s hift. No hydrocephalus. POSTERIOR FOSSA: No signal alteration. No hemorrhage. No edema, masses, or mass effect. Internal ricky tory canals, cerebellopontine angles, mastoids normal. No enhancing lesions. No abnormal enhancement post contrast. DIFFUSION IMAGING: Negative for acute or subacute infarction. ORBITS: No masses. Globes normal. PARANASAL SINUSES: No fluid levels. Mucosa normal. OTHER: No other significant finding. IMPRESSION: 1. Chronic white matter changes. No enhancing lesions. No recent CVA. TECHNICAL DOCUMENTATION: JOB ID: [id number] [employer]- All Rights Reserved
--- NOTE | 2016-10-30 10:57 | RADIOLOGY REPORT (SQ) ---
EXAM DESCRIPTION: MRI ABDOMEN WITHOUT COMPLETED DATE/TIME: 10/30/2016 10:04 am REASON FOR STUDY: Abn CT abd, recommend MRCP COMPARISON: Ultrasound abdomen 10/28/2016. TECHNIQUE: Noncontrast MRCP. Source and MIP images reviewed. LIMITATIONS: Motion artifact. FINDINGS: GALLBLADDER: Normal. INTRAHEPATIC DUCTS: Mild central intrahepatic duct prominence. EXTRAHEPATIC DUCTS: Common duct slightly diffusely prominent. Measuring up to just under 1 cm raffaele lly. Allowing for motion artifact, no duct stone or mass or focal stricture suggested. PANCREAS: Generally homogeneous, no gross mass or significant signal alteration. No surrounding infl ammatory changes or fluid. Pancreatic duct is normal. LIVER, SPLEEN, KIDNEYS, ADRENALS: Left lobe hyperintense T2 lobulated 6.1 cm mass, likely hemangioma in the liver. Probable smaller inferior right posterior hepatic hemangioma measuring just under 3 cm . No overt urinary obstruction. No splenic lesions. No suggestion of adrenal mass. VESSELS: No evidence of aneurysm. Grossly appropriate flow voids in the major vascular structures. LUNG BASES: Grossly clear. OTHER: No other significant finding. IMPRESSION: 1. Mild generalized common duct ectasia. Allowing for motion artifact, no obstructing stone or mass identified. 2. Other findings as above. TECHNICAL DOCUMENTATION: JOB ID: [id number] [employer]- All Rights Reserved
[2016-10-30] MEDS: AMLODIPINE BESYLATE 5 MG TABLET PO SCH (11:01)
[2016-10-30] MEDS: METOPROLOL TARTRATE 25 MG TABLET PO SCH ×2 (11:01→21:46)
[2016-10-30] MEDS: OXYBUTYNIN CHLORIDE 5 MG TABLET PO SCH (11:02)
[2016-10-30] MEDS: CITALOPRAM HYDROBROMIDE 20 MG TABLET PO SCH (11:02)
[2016-10-30] MEDS: LEVOTHYROXINE SODIUM 0.15 MG TABLET PO SCH (11:02)
[2016-10-30] MEDS: ERTAPENEM SODIUM 0.5 GM in NORMAL SALINE 50 ML IV SCH (11:08)
[2016-10-30] MEDS: TIZANIDINE HCL 4 MG TABLET PO PRN (12:21)
[2016-10-30] MEDS ORDERED: FENTANYL 50 MCG/HR PATCH.TD72 TOP ONE (14:00)
--- NOTE | 2016-10-30 14:06 | PDOC PROGRESS REPORT ---
Subjective Progress Note for:: 10/30/16 Subjective:: Patient's mental status is much improved. She is calm and appropriate today. She complains of pain and needing to restart home Baclofen. She also has loose stools x 3 today. No fever, nausea. Physical Exam Vital Signs: Temp Pulse Resp BP Pulse Ox 98.0 F 114 H 19 144/75 H 97 10/30/16 12:09 10/30/16 12:09 10/30/16 12:09 10/30/16 12:09 10/30/16 12:09 Intake & Output 10/29/16 10/30/16 10/31/16 06:59 06:59 06:59 Intake Total 2060 1250 Balance 2060 1250 Weight 54.3 kg 54.7 kg GENERAL: No acute distress HEENT: Conjunctiva clear, nonicteric, moist mucous membranes, no JVD, midline trachea RESPIRATORY: Clear to auscultation bilaterally, no wheezes, no rhonchi CARDIAC: Regular rate and rhythm, no murmurs/gallops/rubs ABDOMEN: Soft, nondistended, nontender, positive bowel sounds, no rebound, no guarding EXTREMETIES: No edema, cyanosis, clubbing NEUROLOGIC: Alert, oriented to person/place/time, CN's grossly intact, weakness in all extremities with contractures noted in lower extremities and left foot drop noted SKIN: No rash, wounds PSYCH: Normal mood, normal affect Results Laboratory Results: 10/30/16 06:24 10/30/16 04:40 10/30/16 10/30/16 10/30/16 04:40 04:40 06:24 WBC Cancelled 21.7 H RBC Cancelled 4.89 Hgb Cancelled 13.0 Hct Cancelled 41.2 MCV Cancelled 84 MCH Cancelled 26.5 L MCHC Cancelled 31.4 L RDW Cancelled 14.3 H Plt Count Cancelled 360 Seg Neutrophils % Cancelled Not Reportable Lymphocytes % Cancelled Not Reportable Monocytes % Cancelled Not Reportable Eosinophils % Cancelled Not Reportable Basophils % Cancelled Not Reportable Absolute Neutrophils Cancelled Not Reportable Absolute Lymphocytes Cancelled Not Reportable Absolute Monocytes Cancelled Not Reportable Absolute Eosinophils Cancelled Not Reportable Absolute Basophils Cancelled Not Reportable Sodium 139.4 Potassium 4.0 Chloride 106 Carbon Dioxide 22 Anion Gap 11 BUN 14 Creatinine 0.59 Est GFR ( Amer) > 60 Est GFR (Non-Af Amer) > 60 Glucose 163 H Calcium 8.9 10/29/16 04:33 Troponin I < 0.012 Impressions: Head CT 10/28/16 00:00 IMPRESSION: No acute intracranial abnormality identified. Abdomen Ultrasound 10/28/16 11:16 IMPRESSION: Midline left lobe liver, distal common duct, midline pancreas not well seen due to bowel gas. Consider MRCP for follow-up of common bile duct dilatation. This was discussed with Dr. Giraldo Chest X-Ray 10/28/16 11:26 IMPRESSION: NO ACUTE RADIOGRAPHIC FINDING IN THE CHEST. Guidance Fluoroscopy 10/29/16 00:00 IMPRESSION: Lumbar puncture under fluoroscopy. No immediate complication. Lumbar Puncture 10/29/16 00:00 IMPRESSION: Lumbar puncture under fluoroscopy. No immediate complication. Abdomen MRI 10/30/16 00:00 IMPRESSION: 1. Mild generalized common duct ectasia. Allowing for motion artifact, no obstructing stone or mass identified. 2. Other findings as above. Head MRI 10/30/16 00:00 IMPRESSION: 1. Chronic white matter changes. No enhancing lesions. No recent CVA. Assessment & Plan - Diagnosis (1) Encephalopathy Is this a current diagnosis for this admission?: YesPlan: Much improved today. Likely secondary to possibly opiate withdrawal. CSF unremarkable for infection. MRI of the brain with no acute process. (2) Systemic inflammatory response syndrome (SIRS) Is this a current diagnosis for this admission?: YesPlan: White blood count elevated. Afebrile. Check Cdiff due to diarrhea. (3) UTI (urinary tract infection) Qualifiers: Urinary tract infection type: site unspecified Hematuria presence: with hematuria Qualified Code(s): N39.0 - Urinary tract infection, site not specified Is this a current diagnosis for this admission?: YesPlan: Patient has recurrent and complicated urinary tract infections. She has failed outpatient Bactrim and Cipro. Urine culture on 10/21/2016 is growing ESBL E. coli sensitive to ertapenem's. Continue IV ertapenem for now. Patient should eventually be able to transition to oral doxycycline based on susceptibility testing. Renal ultrasound performed given recurrent complicated UTIs. This showed a 15 mm stone in the right renal pelvis with no hydronephrosis. Left kidney unremarkable. (4) Abnormal CT scan, liver Is this a current diagnosis for this admission?: YesPlan: MRCP with hemangioma of liver, no acute process. (5) Multiple sclerosis Is this a current diagnosis for this admission?: YesPlan: MRI of brain with no acute process. Patient has not seen a neurologist in 3 years and that was [place] another [place]. (6) Opiate dependence, continuous Is this a current diagnosis for this admission?: YesPlan: Continue Duragesic patch. As needed [place]. (7) Hypothyroid Qualifiers: Hypothyroidism type: unspecified Qualified Code(s): E03.9 - Hypothyroidism, unspecified Is this a current diagnosis for this admission?: YesPlan: Lab work consistent with central hypothyroidism. Continue current dose of levothyroxine 150 mcg daily. (8) Ambulatory dysfunction Is this a current diagnosis for this admission?: YesPlan: Physical therapy. Patient will probably need to go to inpatient rehab. She was ambulating with a rolling walker until about 3 months ago but has been somewhat wheelchair-bound for the past 3 months. (9) Diarrhea Is this a current diagnosis for this admission?: YesPlan: check stool for Cdiff - Time Time Spent with patient: 35 or more minutes Anticipated discharge: SNF Within: when bed available
[2016-10-30] MEDS ORDERED: BACLOFEN 10 MG TABLET PO ONE (15:30)
[2016-10-30] MEDS: HYDROCODONE/ACETAMINOPHEN 10-325 MG TABLET PO PRN (18:17)
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
[2016-10-30] MEDS: GABAPENTIN 300 MG CAPSULE PO SCH (21:46)
[2016-10-30] MEDS: BACLOFEN 10 MG TABLET PO SCH (21:46)
[2016-10-30] MEDS: METRONIDAZOLE 500 MG TABLET PO SCH (21:46)
[2016-10-30] MEDS: ATORVASTATIN CALCIUM 10 MG TABLET PO SCH (21:47)
[2016-10-31] MEDS: HYDROCODONE/ACETAMINOPHEN 10-325 MG TABLET PO PRN ×4 (00:57→21:31)
[2016-10-31] MEDS: BACLOFEN 10 MG TABLET PO SCH ×4 (03:09→21:32)
[2016-10-31 05:40] LABS: ABSOLUTE BASOPHILS # (AUTO) 0.1 10^3/uL (0.0-0.2); ABSOLUTE LYMPHOCYTES (AUTO) 2.8 10^3/uL (0.5-4.7); ABSOLUTE MONOCYTES (AUTO) 0.7 10^3/uL (0.1-1.4); ABSOLUTE NEUT (AUTO) 6.5 10^3/uL (1.7-8.2); BASOPHILS % (AUTO) 0.8 % (0-2); EOSINOPHILS % (AUTO) 0.3 % (0-6); HEMATOCRIT 39.1 % (36.0-47.0); HEMOGLOBIN 12.9 g/dL (12.0-15.5); HGB HCT DIFFERENCE -0.4; LYMPHOCYTES % (AUTO) 27.5 % (13-45); MEAN CORPUSCULAR HEMOGLOBIN 27.4 pg (27.0-33.4); MEAN CORPUSCULAR HGB CONC 32.9 g/dL (32.0-36.0); MEAN CORPUSCULAR VOLUME 83 fl (80-97); MONOCYTES % (AUTO) 6.6 % (3-13); RED CELL DISTRIBUTION WIDTH 13.9 % (11.5-14.0); SEGMENTED NEUTROPHILS % (AUTO) 64.8 % (42-78)
[2016-10-31] MEDS: METRONIDAZOLE 500 MG TABLET PO SCH ×3 (05:53→21:31)
[2016-10-31] MEDS: LANSOPRAZOLE 30 MG TAB.RAP.DR PO SCH (05:53)
[2016-10-31 06:05] LABS: ANION GAP 9 (5-19); BLOOD UREA NITROGEN 10 mg/dL (7-20); CALCIUM 9.1 mg/dL (8.4-10.2); CARBON DIOXIDE 26 mmol/L (22-30); CHLORIDE 104 mmol/L (98-107); CREATININE RESULT 0.55 mg/dL (0.52-1.25); GLUCOSE 89 mg/dL (75-110); POTASSIUM 4.2 mmol/L (3.6-5.0); SODIUM 139.1 mmol/L (137-145)
[2016-10-31] MEDS: OXYBUTYNIN CHLORIDE 5 MG TABLET PO SCH (08:21)
[2016-10-31] MEDS ORDERED: FENTANYL 50 MCG/HR PATCH.TD72 TOP SCH (10:00)
[2016-10-31] MEDS: LEVOTHYROXINE SODIUM 0.15 MG TABLET PO SCH (10:38)
[2016-10-31] MEDS: AMLODIPINE BESYLATE 5 MG TABLET PO SCH (10:38)
[2016-10-31] MEDS: CITALOPRAM HYDROBROMIDE 20 MG TABLET PO SCH (10:39)
[2016-10-31] MEDS: METOPROLOL TARTRATE 25 MG TABLET PO SCH ×2 (10:39→21:32)
[2016-10-31] MEDS: ERTAPENEM SODIUM 0.5 GM in NORMAL SALINE 50 ML IV SCH (10:44)
--- NOTE | 2016-10-31 12:25 | PDOC PROGRESS REPORT ---
Subjective Progress Note for:: 10/31/16 Subjective:: Patient has no new complaints today. Patient denies fever, chills, headache, new focal weakness, chest pain, shortness of breath, abdominal pain, nausea, vomiting, diarrhea, constipation. Physical Exam Vital Signs: Temp Pulse Resp BP Pulse Ox 97.5 F 116 H 18 127/75 H 98 10/31/16 08:11 10/31/16 08:11 10/31/16 08:11 10/31/16 08:11 10/31/16 08:11 Intake & Output 10/30/16 10/31/16 11/01/16 06:59 06:59 06:59 Intake Total 1250 793 Balance 1250 793 Weight 54.7 kg 54.6 kg GENERAL: No acute distress HEENT: Conjunctiva clear, nonicteric, moist mucous membranes, no JVD, midline trachea RESPIRATORY: Clear to auscultation bilaterally, no wheezes, no rhonchi CARDIAC: Regular rate and rhythm, no murmurs/gallops/rubs ABDOMEN: Soft, nondistended, nontender, positive bowel sounds, no rebound, no guarding EXTREMETIES: No edema, cyanosis, clubbing NEUROLOGIC: Alert, oriented to person/place/time, CN's grossly intact, weakness in all extremities with contractures noted in lower extremities and left foot drop noted SKIN: No rash, wounds PSYCH: Normal mood, normal affect Results Laboratory Results: 10/31/16 05:13 10/31/16 05:13 10/31/16 10/31/16 05:13 05:13 WBC 10.0 RBC 4.70 Hgb 12.9 Hct 39.1 MCV 83 MCH 27.4 MCHC 32.9 RDW 13.9 Plt Count 324 Seg Neutrophils % 64.8 Lymphocytes % 27.5 Monocytes % 6.6 Eosinophils % 0.3 Basophils % 0.8 Absolute Neutrophils 6.5 Absolute Lymphocytes 2.8 Absolute Monocytes 0.7 Absolute Eosinophils 0.0 Absolute Basophils 0.1 Sodium 139.1 Potassium 4.2 Chloride 104 Carbon Dioxide 26 Anion Gap 9 BUN 10 Creatinine 0.55 Est GFR ( Amer) > 60 Est GFR (Non-Af Amer) > 60 Glucose 89 Calcium 9.1 10/29/16 04:33 Troponin I < 0.012 Impressions: Head CT 10/28/16 00:00 IMPRESSION: No acute intracranial abnormality identified. Abdomen Ultrasound 10/28/16 11:16 IMPRESSION: Midline left lobe liver, distal common duct, midline pancreas not well seen due to bowel gas. Consider MRCP for follow-up of common bile duct dilatation. This was discussed with Dr. Giraldo Chest X-Ray 10/28/16 11:26 IMPRESSION: NO ACUTE RADIOGRAPHIC FINDING IN THE CHEST. Guidance Fluoroscopy 10/29/16 00:00 IMPRESSION: Lumbar puncture under fluoroscopy. No immediate complication. Lumbar Puncture 10/29/16 00:00 IMPRESSION: Lumbar puncture under fluoroscopy. No immediate complication. Abdomen MRI 10/30/16 00:00 IMPRESSION: 1. Mild generalized common duct ectasia. Allowing for motion artifact, no obstructing stone or mass identified. 2. Other findings as above. Head MRI 10/30/16 00:00 IMPRESSION: 1. Chronic white matter changes. No enhancing lesions. No recent CVA. Assessment & Plan - Diagnosis (1) Encephalopathy Is this a current diagnosis for this admission?: YesPlan: Resolved. Likely secondary to possibly opiate withdrawal. CSF unremarkable for infection. MRI of the brain with no acute process. (2) Systemic inflammatory response syndrome (SIRS) Is this a current diagnosis for this admission?: YesPlan: White blood count normal. afebrile. (3) UTI (urinary tract infection) Qualifiers: Urinary tract infection type: site unspecified Hematuria presence: with hematuria Qualified Code(s): N39.0 - Urinary tract infection, site not specified Is this a current diagnosis for this admission?: YesPlan: Patient has recurrent and complicated urinary tract infections. She has failed outpatient Bactrim and Cipro. Urine culture on 10/21/2016 is growing ESBL E. coli sensitive to ertapenem's. Continue IV ertapenem for now. Patient should eventually be able to transition to oral doxycycline based on susceptibility testing. Renal ultrasound performed given recurrent complicated UTIs. This showed a 15 mm stone in the right renal pelvis with no hydronephrosis. Left kidney unremarkable. (4) Abnormal CT scan, liver Is this a current diagnosis for this admission?: YesPlan: MRCP with hemangioma of liver, no acute process. (5) Multiple sclerosis Is this a current diagnosis for this admission?: YesPlan: MRI of brain with no acute process. Patient has not seen a neurologist in 3 years and that was [place]. (6) Opiate dependence, continuous Is this a current diagnosis for this admission?: YesPlan: Continue Duragesic patch. As needed [place]. (7) Hypothyroid Qualifiers: Hypothyroidism type: unspecified Qualified Code(s): E03.9 - Hypothyroidism, unspecified Is this a current diagnosis for this admission?: YesPlan: Lab work consistent with central hypothyroidism. Continue current dose of levothyroxine 150 mcg daily. (8) Ambulatory dysfunction Is this a current diagnosis for this admission?: YesPlan: Physical therapy. Patient will probably need to go to inpatient rehab. She was ambulating with a rolling walker until about 3 months ago but has been somewhat wheelchair-bound for the past 3 months. (9) Diarrhea Is this a current diagnosis for this admission?: YesPlan: Improved. Check stool for Cdiff. Continue Flagyl. - Time Time Spent with patient: 25-34 minutes
[2016-10-31] MEDS: TIZANIDINE HCL 4 MG TABLET PO PRN (13:27)
[2016-10-31] MEDS: GABAPENTIN 300 MG CAPSULE PO SCH (21:31)
[2016-10-31] MEDS: ATORVASTATIN CALCIUM 10 MG TABLET PO SCH (21:32)
[2016-11-01] MEDS: BACLOFEN 10 MG TABLET PO SCH ×4 (05:09→20:21)
[2016-11-01] MEDS: LANSOPRAZOLE 30 MG TAB.RAP.DR PO SCH (05:33)
[2016-11-01] MEDS: METRONIDAZOLE 500 MG TABLET PO SCH ×3 (05:33→21:33)
[2016-11-01] MEDS: HYDROCODONE/ACETAMINOPHEN 10-325 MG TABLET PO PRN ×3 (05:33→20:21)
[2016-11-01] MEDS: TIZANIDINE HCL 4 MG TABLET PO PRN ×3 (06:08→21:35)
[2016-11-01 06:12] LABS: ABSOLUTE BASOPHILS # (AUTO) 0.1 10^3/uL (0.0-0.2); ABSOLUTE EOSINOPHILS # (AUTO) 0.1 10^3/uL (0.0-0.6); ABSOLUTE LYMPHOCYTES (AUTO) 2.7 10^3/uL (0.5-4.7); ABSOLUTE MONOCYTES (AUTO) 0.5 10^3/uL (0.1-1.4); ABSOLUTE NEUT (AUTO) 3.9 10^3/uL (1.7-8.2); EOSINOPHILS % (AUTO) 1.5 % (0-6); HEMOGLOBIN 13.1 g/dL (12.0-15.5); HGB HCT DIFFERENCE -0.7; LYMPHOCYTES % (AUTO) 36.8 % (13-45); MEAN CORPUSCULAR HEMOGLOBIN 27.4 pg (27.0-33.4); MEAN CORPUSCULAR HGB CONC 32.8 g/dL (32.0-36.0); MEAN CORPUSCULAR VOLUME 83 fl (80-97); MONOCYTES % (AUTO) 7.1 % (3-13); RED CELL DISTRIBUTION WIDTH 14.5 % (11.5-14.0); SEGMENTED NEUTROPHILS % (AUTO) 53.6 % (42-78); WHITE BLOOD COUNT 7.3 10^3/uL (4.0-10.5)
[2016-11-01 06:25] LABS: ANION GAP 7 (5-19); BLOOD UREA NITROGEN 15 mg/dL (7-20); CALCIUM 9.1 mg/dL (8.4-10.2); CARBON DIOXIDE 30 mmol/L (22-30); CHLORIDE 102 mmol/L (98-107); CREATININE RESULT 0.68 mg/dL (0.52-1.25); GLUCOSE 90 mg/dL (75-110); POTASSIUM 4.4 mmol/L (3.6-5.0); SODIUM 139.1 mmol/L (137-145)
[2016-11-01] MEDS: AMLODIPINE BESYLATE 5 MG TABLET PO SCH (09:56)
[2016-11-01] MEDS: OXYBUTYNIN CHLORIDE 5 MG TABLET PO SCH (09:57)
[2016-11-01] MEDS: METOPROLOL TARTRATE 25 MG TABLET PO SCH ×2 (09:57→21:34)
[2016-11-01] MEDS: LEVOTHYROXINE SODIUM 0.15 MG TABLET PO SCH (09:58)
[2016-11-01] MEDS: CITALOPRAM HYDROBROMIDE 20 MG TABLET PO SCH (09:58)
[2016-11-01] MEDS: ERTAPENEM SODIUM 0.5 GM in NORMAL SALINE 50 ML IV SCH (10:11)
[2016-11-01] MEDS ORDERED: FENTANYL 75 MCG/HR PATCH.TD72 TD ONE (13:45)
--- NOTE | 2016-11-01 15:12 | PDOC PROGRESS REPORT ---
Subjective Progress Note for:: 11/01/16 Subjective:: Patient has brief episode of blurring of vision today. No eye pain. Last eye exam 2 years ago. She wears corrective lenses. She is also having significant amount of muscle spasticity in her lower extremities that is causing her pain. Patient denies fever, chills, headache, new focal weakness, chest pain, shortness of breath, abdominal pain, nausea, vomiting, diarrhea, constipation. Physical Exam Vital Signs: Temp Pulse Resp BP Pulse Ox 98.2 F 72 18 116/51 L 99 11/01/16 11:23 11/01/16 14:00 11/01/16 11:23 11/01/16 11:23 11/01/16 11:23 Intake & Output 10/31/16 11/01/16 11/02/16 06:59 06:59 06:59 Intake Total 1507 485 Balance 1507 485 Weight 54.6 kg 54.6 kg GENERAL: No acute distress HEENT: Conjunctiva clear, nonicteric, moist mucous membranes, no JVD, midline trachea RESPIRATORY: Clear to auscultation bilaterally, no wheezes, no rhonchi CARDIAC: Regular rate and rhythm, no murmurs/gallops/rubs ABDOMEN: Soft, nondistended, nontender, positive bowel sounds, no rebound, no guarding EXTREMETIES: No edema, cyanosis, clubbing NEUROLOGIC: Alert, oriented to person/place/time, CN's grossly intact, weakness in all extremities with contractures noted in lower extremities and left foot drop noted SKIN: No rash, wounds PSYCH: Normal mood, normal affect Results Laboratory Results: 11/01/16 05:46 11/01/16 05:46 11/01/16 11/01/16 05:46 05:46 WBC 7.3 RBC 4.80 Hgb 13.1 Hct 40.0 MCV 83 MCH 27.4 MCHC 32.8 RDW 14.5 H Plt Count 329 Seg Neutrophils % 53.6 Lymphocytes % 36.8 Monocytes % 7.1 Eosinophils % 1.5 Basophils % 1.0 Absolute Neutrophils 3.9 Absolute Lymphocytes 2.7 Absolute Monocytes 0.5 Absolute Eosinophils 0.1 Absolute Basophils 0.1 Sodium 139.1 Potassium 4.4 Chloride 102 Carbon Dioxide 30 Anion Gap 7 BUN 15 Creatinine 0.68 Est GFR ( Amer) > 60 Est GFR (Non-Af Amer) > 60 Glucose 90 Calcium 9.1 10/29/16 11:45 Cerebral Spinal Fluid - Csf Gram Stain - Final 10/29/16 11:45 Cerebral Spinal Fluid - Csf CSF Culture - Final NO GROWTH 3 DAYS 10/29/16 04:33 Troponin I < 0.012 Impressions: Head CT 10/28/16 00:00 IMPRESSION: No acute intracranial abnormality identified. Abdomen Ultrasound 10/28/16 11:16 IMPRESSION: Midline left lobe liver, distal common duct, midline pancreas not well seen due to bowel gas. Consider MRCP for follow-up of common bile duct dilatation. This was discussed with Dr. Giraldo Chest X-Ray 10/28/16 11:26 IMPRESSION: NO ACUTE RADIOGRAPHIC FINDING IN THE CHEST. Guidance Fluoroscopy 10/29/16 00:00 IMPRESSION: Lumbar puncture under fluoroscopy. No immediate complication. Lumbar Puncture 10/29/16 00:00 IMPRESSION: Lumbar puncture under fluoroscopy. No immediate complication. Abdomen MRI 10/30/16 00:00 IMPRESSION: 1. Mild generalized common duct ectasia. Allowing for motion artifact, no obstructing stone or mass identified. 2. Other findings as above. Head MRI 10/30/16 00:00 IMPRESSION: 1. Chronic white matter changes. No enhancing lesions. No recent CVA. Assessment & Plan - Diagnosis (1) Encephalopathy Is this a current diagnosis for this admission?: YesPlan: Resolved. Likely secondary to possibly urinary tract infection and opiate withdrawal. CSF unremarkable for infection. MRI of the brain with no acute process. (2) Systemic inflammatory response syndrome (SIRS) Is this a current diagnosis for this admission?: YesPlan: White blood count normal. afebrile. (3) UTI (urinary tract infection) Qualifiers: Urinary tract infection type: site unspecified Hematuria presence: with hematuria Qualified Code(s): N39.0 - Urinary tract infection, site not specified Is this a current diagnosis for this admission?: YesPlan: Patient has recurrent and complicated urinary tract infections. She has failed outpatient Bactrim and Cipro. Urine culture on 10/21/2016 is growing ESBL E. coli sensitive to ertapenem and doxycycline. Discontinue IV ertapenem for now. Start doxycycline 100 mg twice daily until 11/11/2016. Renal ultrasound performed given recurrent complicated UTIs. This showed a 15 mm stone in the right renal pelvis with no hydronephrosis. Left kidney unremarkable. (4) Abnormal CT scan, liver Is this a current diagnosis for this admission?: YesPlan: MRCP with hemangioma of liver, no acute process. (5) Multiple sclerosis Is this a current diagnosis for this admission?: YesPlan: MRI of brain with no acute process. Patient has not seen a neurologist in 3 years [place] We should arrange outpatient neurology appointment upon discharge. Patient is still having significant spasticity. Continue baclofen 10 mg 4 times a day. Increase Zanaflex to 4 mg every 6 hours. (6) Opiate dependence, continuous Is this a current diagnosis for this admission?: YesPlan: Increase Duragesic patch to 75 mcg every 72 hour. As needed Linch. (7) Hypothyroid Qualifiers: Hypothyroidism type: unspecified Qualified Code(s): E03.9 - Hypothyroidism, unspecified Is this a current diagnosis for this admission?: YesPlan: Lab work consistent with central hypothyroidism. Continue current dose of levothyroxine 150 mcg daily. (8) Ambulatory dysfunction Is this a current diagnosis for this admission?: YesPlan: Physical therapy. Patient will probably need to go to inpatient rehab. She was ambulating with a rolling walker until about 3 months ago but has been somewhat wheelchair-bound for the past 3 months. (9) Diarrhea Is this a current diagnosis for this admission?: Yes - Time Time Spent with patient: 35 or more minutes Anticipated discharge: Acute Rehab Within: when bed available
[2016-11-01] MEDS: ATORVASTATIN CALCIUM 10 MG TABLET PO SCH (21:32)
[2016-11-01] MEDS: GABAPENTIN 300 MG CAPSULE PO SCH (21:33)
[2016-11-01] MEDS ORDERED: DOXYCYCLINE HYCLATE 100 MG TABLET PO SCH (22:00)
[2016-11-02] MEDS: BACLOFEN 10 MG TABLET PO SCH ×4 (04:01→22:04)
[2016-11-02] MEDS: HYDROCODONE/ACETAMINOPHEN 10-325 MG TABLET PO PRN ×4 (04:01→22:03)
[2016-11-02] MEDS: LANSOPRAZOLE 30 MG TAB.RAP.DR PO SCH (05:13)
[2016-11-02] MEDS: METRONIDAZOLE 500 MG TABLET PO SCH ×3 (05:13→22:04)
[2016-11-02] MEDS: OXYBUTYNIN CHLORIDE 5 MG TABLET PO SCH (08:33)
[2016-11-02] MEDS: TIZANIDINE HCL 4 MG TABLET PO PRN (08:34)
[2016-11-02 09:24] LABS: ABSOLUTE BASOPHILS # (AUTO) 0.1 10^3/uL (0.0-0.2); ABSOLUTE EOSINOPHILS # (AUTO) 0.1 10^3/uL (0.0-0.6); ABSOLUTE LYMPHOCYTES (AUTO) 2.5 10^3/uL (0.5-4.7); ABSOLUTE MONOCYTES (AUTO) 0.5 10^3/uL (0.1-1.4); ABSOLUTE NEUT (AUTO) 3.7 10^3/uL (1.7-8.2); BASOPHILS % (AUTO) 0.8 % (0-2); EOSINOPHILS % (AUTO) 1.1 % (0-6); HEMATOCRIT 40.6 % (36.0-47.0); HEMOGLOBIN 13.2 g/dL (12.0-15.5); LYMPHOCYTES % (AUTO) 36.7 % (13-45); MEAN CORPUSCULAR HEMOGLOBIN 27.1 pg (27.0-33.4); MEAN CORPUSCULAR HGB CONC 32.5 g/dL (32.0-36.0); MEAN CORPUSCULAR VOLUME 84 fl (80-97); MONOCYTES % (AUTO) 7.3 % (3-13); RED BLOOD COUNT 4.85 10^6/uL (3.72-5.28); RED CELL DISTRIBUTION WIDTH 14.2 % (11.5-14.0); SEGMENTED NEUTROPHILS % (AUTO) 54.1 % (42-78); WHITE BLOOD COUNT 6.8 10^3/uL (4.0-10.5)
[2016-11-02 09:39] LABS: ANION GAP 11 (5-19); BLOOD UREA NITROGEN 13 mg/dL (7-20); CALCIUM 9.2 mg/dL (8.4-10.2); CARBON DIOXIDE 31 mmol/L (22-30); CHLORIDE 98 mmol/L (98-107); CREATININE RESULT 0.63 mg/dL (0.52-1.25); GLUCOSE 125 mg/dL (75-110); POTASSIUM 4.7 mmol/L (3.6-5.0); SODIUM 139.8 mmol/L (137-145)
[2016-11-02] MEDS: METOPROLOL TARTRATE 25 MG TABLET PO SCH ×2 (09:55→22:06)
[2016-11-02] MEDS: AMLODIPINE BESYLATE 5 MG TABLET PO SCH (09:55)
[2016-11-02] MEDS: LEVOTHYROXINE SODIUM 0.15 MG TABLET PO SCH (09:56)
[2016-11-02] MEDS: CITALOPRAM HYDROBROMIDE 20 MG TABLET PO SCH (09:56)
[2016-11-02] MEDS: ERTAPENEM SODIUM 1 GM in NORMAL SALINE 50 ML IV SCH (09:57)
[2016-11-02] MEDS ORDERED: FENTANYL 50 MCG/HR PATCH.TD72 TOP SCH (10:00)
[2016-11-02] MEDS ORDERED: MAGNESIUM CITRATE 296 ML BOTTLE PO ONE (11:30)
--- NOTE | 2016-11-02 16:02 | PDOC PROGRESS REPORT ---
Subjective Progress Note for:: 11/02/16 Subjective:: Reports that she is feeling improved. Patient denies chest pain, shortness of breath, vomiting, fever, chills, new onset weakness. Patient did note some blurred vision but does not have her glasses currently. Physical Exam Vital Signs: Temp Pulse Resp BP Pulse Ox 97.8 F 77 15 128/52 H 98 11/02/16 07:26 11/02/16 07:26 11/02/16 07:26 11/02/16 07:26 11/02/16 07:26 Intake & Output 11/01/16 11/02/16 11/03/16 06:59 06:59 06:59 Intake Total 485 1460 Balance 485 1460 Weight 54.6 kg 54.1 kg Exam: GENERAL: No acute distress, chronically ill appearing, older than stated age appearing HEENT: Conjunctiva clear, nonicteric, moist mucous membranes, no JVD, midline trachea RESPIRATORY: Clear to auscultation bilaterally, no wheezes, no rhonchi CARDIAC: Regular rate and rhythm, no murmurs/gallops/rubs ABDOMEN: Soft, nondistended, nontender, positive bowel sounds, no rebound, no guarding EXTREMETIES: No cyanosis, clubbing; trace edema NEUROLOGIC: Alert, oriented to person/place/time, CN's grossly intact, weakness in all extremities with contractures noted in lower extremities and left foot drop noted SKIN: No rash, wounds PSYCH: Normal mood, normal affect Results Laboratory Results: 11/01/16 05:46 11/01/16 05:46 10/28/16 04:29 Blood Blood Culture - Final NO GROWTH IN 5 DAYS 10/27/16 19:25 Blood Blood Culture - Final NO GROWTH IN 5 DAYS 10/29/16 11:45 Cerebral Spinal Fluid - Csf Gram Stain - Final 10/29/16 11:45 Cerebral Spinal Fluid - Csf CSF Culture - Final NO GROWTH 3 DAYS 10/29/16 04:33 Troponin I < 0.012 Impressions: Head CT 10/28/16 00:00 IMPRESSION: No acute intracranial abnormality identified. Abdomen Ultrasound 10/28/16 11:16 IMPRESSION: Midline left lobe liver, distal common duct, midline pancreas not well seen due to bowel gas. Consider MRCP for follow-up of common bile duct dilatation. This was discussed with Dr. Giraldo Chest X-Ray 10/28/16 11:26 IMPRESSION: NO ACUTE RADIOGRAPHIC FINDING IN THE CHEST. Guidance Fluoroscopy 10/29/16 00:00 IMPRESSION: Lumbar puncture under fluoroscopy. No immediate complication. Lumbar Puncture 10/29/16 00:00 IMPRESSION: Lumbar puncture under fluoroscopy. No immediate complication. Abdomen MRI 10/30/16 00:00 IMPRESSION: 1. Mild generalized common duct ectasia. Allowing for motion artifact, no obstructing stone or mass identified. 2. Other findings as above. Head MRI 10/30/16 00:00 IMPRESSION: 1. Chronic white matter changes. No enhancing lesions. No recent CVA. Assessment & Plan - Diagnosis (1) Sepsis Qualifiers: Sepsis type: Escherichia coli Qualified Code(s): A41.51 - Sepsis due to Escherichia coli [E. coli] Is this a current diagnosis for this admission?: YesPlan: Presented with criteria met for sirs and obvious source of ESBL E. coli UTI. This is sepsis. Patient was encephalopathic on admission which has since resolved. The patient's sepsis is now resolved. (2) Hemangioma of liver Is this a current diagnosis for this admission?: YesPlan: Abnormal CAT scan of the liver which was followed with an MRI of the liver which revealed hemangioma. (3) Ambulatory dysfunction Is this a current diagnosis for this admission?: YesPlan: Need to go to inpatient rehabilitation (4) Diarrhea Qualifiers: Diarrhea type: unspecified type Qualified Code(s): R19.7 - Diarrhea , unspecified Is this a current diagnosis for this admission?: YesPlan: Reports chronic diarrhea. (5) Encephalopathy Is this a current diagnosis for this admission?: YesPlan: Post. Patient is awake alert and oriented 3. (6) Multiple sclerosis Is this a current diagnosis for this admission?: YesPlan: Pending oligocolonal bands from CSF. MRI of the brain does not reaveal any current active lesions. Continue symptom management (7) Opiate dependence, continuous Is this a current diagnosis for this admission?: YesPlan: At this time, no increases in pain medication. (8) UTI (urinary tract infection) Qualifiers: Urinary tract infection type: site unspecified Hematuria presence: with hematuria Qualified Code(s): N39.0 - Urinary tract infection, site not specified Is this a current diagnosis for this admission?: YesPlan: Patient with ESBL E.Coli UTI. Patient on day #5/7 of ertapenem. (9) Hypothyroid Qualifiers: Hypothyroidism type: unspecified Qualified Code(s): E03.9 - Hypothyroidism, unspecified Is this a current diagnosis for this admission?: YesPlan: Continue synthroid. - Time Time Spent with patient: 25-34 minutes Medications reviewed and adjusted accordingly: Yes Anticipated discharge: SNF, Acute Rehab Within: when bed available - Inpatient Certification Based on my medical assessment, after consideration of the patient's comorbidities, presenting symptoms, or acuity I expect that the services needed warrant INPATIENT care.: Yes I certify that my determination is in accordance with my understanding of Medicare's requirements for reasonable and necessary INPATIENT services [42 CFR 412.3e].: Yes Medical Necessity: Need for IV Antibiotics Post Hospital Care: D/C Social Media Developer Documentation
[2016-11-02] MEDS: DOCUSATE SODIUM 100 MG CAPSULE PO SCH (17:32)
[2016-11-02] MEDS: ATORVASTATIN CALCIUM 10 MG TABLET PO SCH (22:01)
[2016-11-02] MEDS: SENNOSIDES/DOCUSATE 8.6-50 MG 1 EACH TABLET PO SCH (22:02)
[2016-11-02] MEDS: GABAPENTIN 300 MG CAPSULE PO SCH (22:03)
[2016-11-03] MEDS: BACLOFEN 10 MG TABLET PO SCH ×4 (04:12→22:43)
[2016-11-03] MEDS: HYDROCODONE/ACETAMINOPHEN 10-325 MG TABLET PO PRN ×3 (04:15→20:05)
[2016-11-03] MEDS: LANSOPRAZOLE 30 MG TAB.RAP.DR PO SCH (05:11)
[2016-11-03] MEDS: METRONIDAZOLE 500 MG TABLET PO SCH ×3 (05:11→22:44)
[2016-11-03] MEDS: LEVOTHYROXINE SODIUM 0.15 MG TABLET PO SCH (09:08)
[2016-11-03] MEDS: CITALOPRAM HYDROBROMIDE 20 MG TABLET PO SCH (09:08)
[2016-11-03] MEDS: METOPROLOL TARTRATE 25 MG TABLET PO SCH ×2 (09:08→22:46)
[2016-11-03] MEDS: AMLODIPINE BESYLATE 5 MG TABLET PO SCH (09:08)
[2016-11-03] MEDS: DOCUSATE SODIUM 100 MG CAPSULE PO SCH ×2 (09:09→17:56)
[2016-11-03] MEDS: OXYBUTYNIN CHLORIDE 5 MG TABLET PO SCH (09:09)
[2016-11-03] MEDS: ERTAPENEM SODIUM 1 GM in NORMAL SALINE 50 ML IV SCH (10:16)
--- NOTE | 2016-11-03 15:08 | PDOC PROGRESS REPORT ---
Subjective Progress Note for:: 11/03/16 Subjective:: Reports that she is feeling improved. Patient denies chest pain, shortness of breath, vomiting, fever, chills, new onset weakness. Physical Exam Vital Signs: Temp Pulse Resp BP Pulse Ox 98.4 F 74 17 111/58 L 98 11/03/16 11:09 11/03/16 11:09 11/03/16 11:09 11/03/16 11:09 11/03/16 11:09 Intake & Output 11/02/16 11/03/16 11/04/16 06:59 06:59 06:59 Intake Total 1460 1020 Balance 1460 1020 Weight 54.1 kg 56.9 kg Exam: GENERAL: No acute distress, chronically ill appearing, older than stated age appearing HEENT: Conjunctiva clear, nonicteric, moist mucous membranes, no JVD, midline trachea RESPIRATORY: Clear to auscultation bilaterally, no wheezes, no rhonchi CARDIAC: Regular rate and rhythm, no murmurs/gallops/rubs ABDOMEN: Soft, nondistended, nontender, positive bowel sounds, no rebound, no guarding EXTREMETIES: No cyanosis, clubbing; +1 edema NEUROLOGIC: Alert, oriented to person/place/time, CN's grossly intact, weakness in all extremities with contractures noted in lower extremities and left foot drop noted SKIN: No rash, wounds PSYCH: Normal mood, normal affect Results Laboratory Results: 11/02/16 09:06 11/02/16 09:06 10/29/16 04:33 Troponin I < 0.012 Impressions: Head CT 10/28/16 00:00 IMPRESSION: No acute intracranial abnormality identified. Abdomen Ultrasound 10/28/16 11:16 IMPRESSION: Midline left lobe liver, distal common duct, midline pancreas not well seen due to bowel gas. Consider MRCP for follow-up of common bile duct dilatation. This was discussed with Dr. Giraldo Chest X-Ray 10/28/16 11:26 IMPRESSION: NO ACUTE RADIOGRAPHIC FINDING IN THE CHEST. Guidance Fluoroscopy 10/29/16 00:00 IMPRESSION: Lumbar puncture under fluoroscopy. No immediate complication. Lumbar Puncture 10/29/16 00:00 IMPRESSION: Lumbar puncture under fluoroscopy. No immediate complication. Abdomen MRI 10/30/16 00:00 IMPRESSION: 1. Mild generalized common duct ectasia. Allowing for motion artifact, no obstructing stone or mass identified. 2. Other findings as above. Head MRI 10/30/16 00:00 IMPRESSION: 1. Chronic white matter changes. No enhancing lesions. No recent CVA. Assessment & Plan - Diagnosis (1) Sepsis Qualifiers: Sepsis type: Escherichia coli Qualified Code(s): A41.51 - Sepsis due to Escherichia coli [E. coli] Is this a current diagnosis for this admission?: YesPlan: Presented with criteria met for sirs and obvious source of ESBL E. coli UTI. This is sepsis. Patient was encephalopathic on admission which has since resolved. The patient's sepsis is now resolved. (2) Hemangioma of liver Is this a current diagnosis for this admission?: YesPlan: Abnormal CAT scan of the liver which was followed with an MRI of the liver which revealed hemangioma. (3) Ambulatory dysfunction Is this a current diagnosis for this admission?: YesPlan: Need to go to inpatient rehabilitation (4) Diarrhea Qualifiers: Diarrhea type: unspecified type Qualified Code(s): R19.7 - Diarrhea , unspecified Is this a current diagnosis for this admission?: YesPlan: Reports chronic diarrhea. This has resolved and is having normal stool. (5) Encephalopathy Is this a current diagnosis for this admission?: YesPlan: Improved, back to baseline. Patient is awake alert and oriented 3. (6) Multiple sclerosis Is this a current diagnosis for this admission?: YesPlan: Pending oligocolonal bands from CSF. MRI of the brain does not reaveal any current active lesions. Continue symptom management (7) Opiate dependence, continuous Is this a current diagnosis for this admission?: YesPlan: Well controlled at this time, no increases in pain medication. (8) UTI (urinary tract infection) Qualifiers: Urinary tract infection type: site unspecified Hematuria presence: with hematuria Qualified Code(s): N39.0 - Urinary tract infection, site not specified Is this a current diagnosis for this admission?: YesPlan: Patient with ESBL E.Coli UTI. Patient on day #6/7 of ertapenem. (9) Hypothyroid Qualifiers: Hypothyroidism type: unspecified Qualified Code(s): E03.9 - Hypothyroidism, unspecified Is this a current diagnosis for this admission?: YesPlan: Continue synthroid. - Plan Summary Plan Summary: Currently receiving ertapenem for ESBL E. coli UTI while awaiting placement for rehabilitation.
[2016-11-03 17:37] LABS: CSF PE BETA GLOBULIN 24.9 % (7.3-17.9); TOTAL PROTEIN CSF PE 33.1 mg/dL (0.0-44.0)
[2016-11-03] MEDS: TIZANIDINE HCL 4 MG TABLET PO PRN (20:05)
[2016-11-03] MEDS: GABAPENTIN 300 MG CAPSULE PO SCH (22:43)
[2016-11-03] MEDS: ATORVASTATIN CALCIUM 10 MG TABLET PO SCH (22:44)
[2016-11-03] MEDS: SENNOSIDES/DOCUSATE 8.6-50 MG 1 EACH TABLET PO SCH (22:46)
[2016-11-04] MEDS: LANSOPRAZOLE 30 MG TAB.RAP.DR PO SCH (05:31)
[2016-11-04] MEDS: HYDROCODONE/ACETAMINOPHEN 10-325 MG TABLET PO PRN ×2 (05:31→18:10)
[2016-11-04] MEDS: METRONIDAZOLE 500 MG TABLET PO SCH ×3 (05:31→21:33)
[2016-11-04] MEDS: BACLOFEN 10 MG TABLET PO SCH ×4 (05:31→21:33)
[2016-11-04 07:04] LABS: CSF PE GAMMA GLOBULIN 8.5 % (3.0-13.0); PROT ELEC MSPIKE Not Observed % (Not Observed)
[2016-11-04] MEDS ORDERED: FENTANYL 75 MCG/HR PATCH.TD72 TD SCH (10:00)
[2016-11-04] MEDS: CITALOPRAM HYDROBROMIDE 20 MG TABLET PO SCH (11:14)
[2016-11-04] MEDS: METOPROLOL TARTRATE 25 MG TABLET PO SCH ×2 (11:15→23:51)
[2016-11-04] MEDS: LEVOTHYROXINE SODIUM 0.15 MG TABLET PO SCH (11:17)
[2016-11-04] MEDS: OXYBUTYNIN CHLORIDE 5 MG TABLET PO SCH (11:22)
[2016-11-04] MEDS: ERTAPENEM SODIUM 1 GM in NORMAL SALINE 50 ML IV SCH (11:22)
[2016-11-04] MEDS: AMLODIPINE BESYLATE 5 MG TABLET PO SCH (11:25)
[2016-11-04] MEDS: DOCUSATE SODIUM 100 MG CAPSULE PO SCH ×2 (11:26→18:11)
--- NOTE | 2016-11-04 15:32 | PDOC PROGRESS REPORT ---
Subjective Progress Note for:: 11/04/16 Subjective:: Reports pain is well controlled. Denies new complaint. Would like a shower. Patient denies chest pain, shortness of breath, vomiting, fever, chills, new onset weakness. Physical Exam Vital Signs: Temp Pulse Resp BP Pulse Ox 97.1 F 83 16 110/67 98 11/04/16 05:17 11/04/16 05:17 11/04/16 05:17 11/04/16 05:17 11/04/16 05:17 Intake & Output 11/03/16 11/04/16 11/05/16 06:59 06:59 06:59 Intake Total 1020 1100 Balance 1020 1100 Weight 56.9 kg 56.9 kg Exam: GENERAL: No acute distress, chronically ill appearing, older than stated age appearing HEENT: Conjunctiva clear, nonicteric, moist mucous membranes, no JVD, midline trachea RESPIRATORY: Clear to auscultation bilaterally, no wheezes, no rhonchi CARDIAC: Regular rate and rhythm, no murmurs/gallops/rubs ABDOMEN: Soft, nondistended, nontender, positive bowel sounds, no rebound, no guarding EXTREMETIES: No cyanosis, clubbing; +1 edema NEUROLOGIC: Alert, oriented to person/place/time, CN's grossly intact, weakness in all extremities with contractures noted in lower extremities and left foot drop noted SKIN: No rash, wounds PSYCH: Normal mood, normal affect Results Laboratory Results: 11/02/16 09:06 11/02/16 09:06 10/29/16 11:45 CSF Total Protein PEP 33.1 CSF Prealbumin 4.5 CSF Albumin 57.3 CSF Yzawt-1-Gnsjoflm 2.8 CSF Uvgap-2-Boimzhkc 2.0 L CSF Beta Globulin 24.9 H CSF Gamma Globulin 8.5 CSF PEP M-Andres Not Observed 10/29/16 04:33 Troponin I < 0.012 Impressions: Head CT 10/28/16 00:00 IMPRESSION: No acute intracranial abnormality identified. Abdomen Ultrasound 10/28/16 11:16 IMPRESSION: Midline left lobe liver, distal common duct, midline pancreas not well seen due to bowel gas. Consider MRCP for follow-up of common bile duct dilatation. This was discussed with Dr. Giraldo Chest X-Ray 10/28/16 11:26 IMPRESSION: NO ACUTE RADIOGRAPHIC FINDING IN THE CHEST. Guidance Fluoroscopy 10/29/16 00:00 IMPRESSION: Lumbar puncture under fluoroscopy. No immediate complication. Lumbar Puncture 10/29/16 00:00 IMPRESSION: Lumbar puncture under fluoroscopy. No immediate complication. Abdomen MRI 10/30/16 00:00 IMPRESSION: 1. Mild generalized common duct ectasia. Allowing for motion artifact, no obstructing stone or mass identified. 2. Other findings as above. Head MRI 10/30/16 00:00 IMPRESSION: 1. Chronic white matter changes. No enhancing lesions. No recent CVA. Assessment & Plan - Diagnosis (1) Sepsis Qualifiers: Sepsis type: Escherichia coli Qualified Code(s): A41.51 - Sepsis due to Escherichia coli [E. coli] Is this a current diagnosis for this admission?: YesPlan: Presented with criteria met for sirs and obvious source of ESBL E. coli UTI. This is sepsis. Patient was encephalopathic on admission which has since resolved. The patient's sepsis is now resolved. (2) Hemangioma of liver Is this a current diagnosis for this admission?: Yes (3) Ambulatory dysfunction Is this a current diagnosis for this admission?: YesPlan: Need to go to inpatient rehabilitation Discharge is merely pending outpatient rehabilitation placement. (4) Diarrhea Qualifiers: Diarrhea type: unspecified type Qualified Code(s): R19.7 - Diarrhea , unspecified Is this a current diagnosis for this admission?: Yes (5) Encephalopathy Is this a current diagnosis for this admission?: YesPlan: Improved, back to baseline. Patient is awake alert and oriented 3. (6) Multiple sclerosis Is this a current diagnosis for this admission?: YesPlan: Negative oligocolonal bands from CSF. MRI of the brain does not reaveal any current active lesions. Continue symptom management (7) Opiate dependence, continuous Is this a current diagnosis for this admission?: YesPlan: Well controlled at this time, no increases in pain medication. (8) UTI (urinary tract infection) Qualifiers: Urinary tract infection type: site unspecified Hematuria presence: with hematuria Qualified Code(s): N39.0 - Urinary tract infection, site not specified Is this a current diagnosis for this admission?: YesPlan: Patient with ESBL E.Coli UTI. Patient on day #7/7 of ertapenem. (9) Hypothyroid Qualifiers: Hypothyroidism type: unspecified Qualified Code(s): E03.9 - Hypothyroidism, unspecified Is this a current diagnosis for this admission?: YesPlan: Continue synthroid. - Time Time Spent with patient: 15-24 minutes Medications reviewed and adjusted accordingly: Yes Anticipated discharge: Acute Rehab Within: when bed available
[2016-11-04] MEDS: ATORVASTATIN CALCIUM 10 MG TABLET PO SCH (21:33)
[2016-11-04] MEDS: GABAPENTIN 300 MG CAPSULE PO SCH (21:33)
[2016-11-04] MEDS: SENNOSIDES/DOCUSATE 8.6-50 MG 1 EACH TABLET PO SCH (21:35)
[2016-11-05] MEDS: BACLOFEN 10 MG TABLET PO SCH ×3 (03:17→15:38)
[2016-11-05] MEDS: HYDROCODONE/ACETAMINOPHEN 10-325 MG TABLET PO PRN ×2 (05:40→17:04)
[2016-11-05] MEDS: METRONIDAZOLE 500 MG TABLET PO SCH ×2 (05:40→15:38)
[2016-11-05] MEDS: LANSOPRAZOLE 30 MG TAB.RAP.DR PO SCH (05:40)
[2016-11-05] MEDS: OXYBUTYNIN CHLORIDE 5 MG TABLET PO SCH (07:40)
[2016-11-05] MEDS ORDERED: LEVOTHYROXINE SODIUM 0.15 MG TABLET PO SCH (08:00)
[2016-11-05] MEDS: METOPROLOL TARTRATE 25 MG TABLET PO SCH (09:39)
[2016-11-05] MEDS: AMLODIPINE BESYLATE 5 MG TABLET PO SCH (09:40)
[2016-11-05] MEDS: CITALOPRAM HYDROBROMIDE 20 MG TABLET PO SCH (09:40)
[2016-11-05] MEDS: ERTAPENEM SODIUM 1 GM in NORMAL SALINE 50 ML IV SCH (09:41)
[2016-11-05] MEDS: DOCUSATE SODIUM 100 MG CAPSULE PO SCH ×2 (09:41→17:56)
--- NOTE | 2016-11-05 14:30 | PDOC TRANSFER SUMMARY ---
General - Admit/Disc Date/PCP Admission Date/Primary Care Provider: 10/27/16 18:14 SARBJIT CAGLE Discharge Date: 11/05/16 - Discharge Diagnosis (1) Sepsis Is this a current diagnosis for this admission?: Yes (2) UTI (urinary tract infection) Is this a current diagnosis for this admission?: Yes (3) Hemangioma of liver Is this a current diagnosis for this admission?: Yes (4) Ambulatory dysfunction Is this a current diagnosis for this admission?: Yes (5) Diarrhea Is this a current diagnosis for this admission?: Yes (6) Encephalopathy Is this a current diagnosis for this admission?: Yes (7) Multiple sclerosis Is this a current diagnosis for this admission?: Yes (8) Opiate dependence, continuous Is this a current diagnosis for this admission?: Yes (9) Hypothyroid Is this a current diagnosis for this admission?: Yes - Additional Information Discharge Diet: Cardiac Discharge Activity: Activity As Tolerated Home Medications: Amlodipine Besylate [Norvasc 5 mg Tablet] 5 mg PO QAM 10/27/16 Citalopram Hydrobromide [Celexa 20 mg Tablet] 20 mg PO DAILY 10/27/16 Gabapentin [Neurontin 300 mg Capsule] 900 mg PO QHS 10/27/16 Levothyroxine Sodium [Synthroid 0.15 mg Tablet] 0.15 mg PO DAILY 10/27/16 Metoprolol Tartrate [Lopressor 25 mg Tablet] 12.5 mg PO Q12 10/27/16 Oxybutynin Chloride [Ditropan 5 mg Tablet] 5 mg PO QAM 10/27/16 Pravastatin Sodium 20 mg PO QHS 10/27/16 Tizanidine HCl [Zanaflex 4 mg Tablet] 4 mg PO Q8HP PRN 10/27/16 Baclofen [Baclofen 10 mg Tablet] 10 mg PO Q6A #28 tablet 11/05/16 Fentanyl [Duragesic 75 Mcg/Hr Transdermal Patch] 1 each TD Q3DAYS 7 Days Hydrocodone/Acetaminophen [Olivet 10-325 Tablet] 1 tab PO Q8HP PRN #21 tablet 11/15 Metronidazole [Flagyl 500 mg Tablet] 500 mg PO Q8 #21 tablet 11/05/16 History of Present Illness Admission Date/PCP: 10/27/16 18:14 SARBJIT CAGLE History of Present Illness: SHONNA CANALES is a 66 year old female that presents to the emergency department for recurrent urinary tract infection and altered mental status. Patient is an established patient of Dr. Cagle but he has transferred service to the hospitalist service. Apparently at some point in patient's overtly delirious state she somehow stated she wanted to see "Dr. Giraldo". I have never seen this patient before. Dr. Cagle actively follows with patient as an outpatient but does not wish to see her any further. He has not formally discharge this patient from his practice prior to today's date. He has been actively prescribing patient medications up until this admission and actually admitted her to the hospital in 2016. I have tried to discuss with him that it makes more sense for him to see this patient as he is aware of her medical history and I am not that he did not wish to do this. History from patient is limited by altered mental status. Patient is continuously yelling random things from her room at the time of my visit. Hospital Course Hospital Course: Patient was found to have an ESBL E.Coli urinary tract infection. Patient was treated for 7 days with Invanz. Patient had improvement of her mental status with treatment of UTI back to baseline. Patient's pain was treated with Fentanyl patch, baclofen, and zanaflex. One week of medications were written for and recommend re-evaluation by facility physician for pain needs as she becomes more active. MRI was preformed which revealed no active MS lesions. Patient underwent LP which was negative for infection as well as oligoclonal bands. Patient is doing well and stable for transport to facility. Physical Exam Vital Signs: Temp Pulse Resp BP Pulse Ox 97.7 F 89 18 115/48 L 95 11/05/16 07:32 11/05/16 07:32 11/05/16 07:32 11/05/16 07:32 11/05/16 07:32 Intake & Output 11/04/16 11/05/16 11/06/16 06:59 06:59 06:59 Intake Total 1100 955 Balance 1100 955 Weight 56.9 kg 57 kg Exam: GENERAL: No acute distress, chronically ill appearing, older than stated age appearing HEENT: Conjunctiva clear, nonicteric, moist mucous membranes, no JVD, midline trachea RESPIRATORY: Clear to auscultation bilaterally, no wheezes, no rhonchi CARDIAC: Regular rate and rhythm, no murmurs/gallops/rubs ABDOMEN: Soft, nondistended, nontender, positive bowel sounds, no rebound, no guarding EXTREMETIES: No cyanosis, clubbing; +1 edema NEUROLOGIC: Alert, oriented to person/place/time, CN's grossly intact, weakness in all extremities with contractures noted in lower extremities and left foot drop noted SKIN: No rash, wounds PSYCH: Normal mood, normal affect Results Laboratory Results: 11/02/16 09:06 11/02/16 09:06 10/29/16 04:33 Troponin I < 0.012 Impressions: Head CT 10/28/16 00:00 IMPRESSION: No acute intracranial abnormality identified. Abdomen Ultrasound 10/28/16 11:16 IMPRESSION: Midline left lobe liver, distal common duct, midline pancreas not well seen due to bowel gas. Consider MRCP for follow-up of common bile duct dilatation. This was discussed with Dr. Giraldo Chest X-Ray 10/28/16 11:26 IMPRESSION: NO ACUTE RADIOGRAPHIC FINDING IN THE CHEST. Guidance Fluoroscopy 10/29/16 00:00 IMPRESSION: Lumbar puncture under fluoroscopy. No immediate complication. Lumbar Puncture 10/29/16 00:00 IMPRESSION: Lumbar puncture under fluoroscopy. No immediate complication. Abdomen MRI 10/30/16 00:00 IMPRESSION: 1. Mild generalized common duct ectasia. Allowing for motion artifact, no obstructing stone or mass identified. 2. Other findings as above. Head MRI 10/30/16 00:00 IMPRESSION: 1. Chronic white matter changes. No enhancing lesions. No recent CVA. Transfer Plan - Time Spent with Patient Time spent with patient: Less than 30 Minutes Qualifiers PATEINT BEING DISCHARGED WITH ANY OF THE FOLLOWING DIAGNOSIS?: No Plan Time Spent: Greater than 30 Minutes
[2016-11-05 20:22] VITALS: BP 102/50
== END 2016-11-05 20:30 | DRG 871 ==
LOC: ER 15:21 → EH 18:14 → 4S 20:14
PROVIDERS: ADMIT Internal Medicine Geriatric Medicine; ATTEND Internal Medicine Geriatric Medicine
PROC: 00JU3ZZ Inspection of Spinal Canal, Percutaneous Approach (ICD-10-PCS; principal; 2016-10-29)
DX: A41.51 Sepsis due to Escherichia coli [E. coli] (principal); G93.40 Encephalopathy, unspecified; F11.20 Opioid dependence, uncomplicated; N39.0 Urinary tract infection, site not specified; Z16.12 Extended spectrum beta lactamase (ESBL) resistance; B96.20 Unspecified Escherichia coli [E. coli] as the cause of diseases classified elsewhere; D18.03 Hemangioma of intra-abdominal structures; R19.7 Diarrhea, unspecified; G35 Multiple sclerosis; E03.9 Hypothyroidism, unspecified; I10 Essential (primary) hypertension; K21.9 Gastro-esophageal reflux disease without esophagitis; M19.90 Unspecified osteoarthritis, unspecified site; F32.9 Major depressive disorder, single episode, unspecified; Z79.899 Other long term (current) drug therapy; Z90.710 Acquired absence of both cervix and uterus; Z88.0 Allergy status to penicillin
CPT/HCPCS: 36415; 51701; 62270; 70450; 70553; 71010; 74181; 76700; 77003; 80048; 80053; 80307; 81001; 82945; 82962; 83735; 83916; 84157; 84166; 84439; 84443; 84481; 84484; 85025; 85610; 85730; 86403; 87040; 87070; 87086; 87088; 87205; 87252; 89050; 93005; 93010; 93976; 99284; 99285; A9270-GY; A9577; G8978-GP; G8979-GP; G8987-GO; G8988-GO; J0696; J1267; J1335; J1650; J2405; J3490; J7030